=== PATIENT | female | born 2000 | race Caucasian/White ===

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

== ENCOUNTER 2018-01-26 16:03 | Outpatient (CLI) | payer OTHER ==
[2018-01-26 17:10] VITALS: BP 107/57; PULSE 98; RESP 18; TEMP 97.6
--- NOTE | 2018-02-10 06:49 | P.MSEPDOC ---
Presenting Problems - Arrival Data Date of Arrival on Unit: 01/26/18 Time of Arrival on Unit: 16:03 Mode of Transport: Ambulatory - Complaint OB-Reason for Admission/Chief Complaint: Vaginal Bleeding Comment: Bright red vaginal spotting Medical History - Information : 2 Para: 1 Term: 1 : 0 Abortions: Spontaneous or Elective: 0 Number of Living Children: 1 - Gestational Age Gestational Age by OMAR (wks/days): 31 Weeks and 3 Days - History Complications: No Care Review of Systems - Review of Systems Constitutional: No problems Breast: No problems ENT: No problems Cardiovascular: No problems Respiratory: No problems Gastrointestinal: No problems Genitourinary: No problems Musculoskeletal: No problems Neurological: No problems Skin: No problems Vital Signs - Temperature Temperature: 97.6 F Temperature Source: Axillary - Pulse Pulse Oximetery Pulse Rate: 98 Pulse Assessment Method: Pulse Oximetry - Respirations Respiratory Rate: 18 Oxygen Delivery Method: Room Air O2 Sat by Pulse Oximetry: 99 - Blood Pressure Right Arm Blood Pressure: 107/57 Blood Pressure Mean: 73 Blood Pressure Source: Automatic Cuff Medical Screen Scoring (Pre) - Cervical Exam Dilation: Exam Deferred Effacement: Exam Deferred Membranes: Intact - Uterine Contractions Frequency: N/A Duration: N/A Intensity: N/A - Maternal Vital Signs Maternal Temperature: N/A Maternal Blood Pressure: N/A Signs of Preeclampsia: N/A Maternal Respirations: N/A - Pain Assessment Pain Scale Used: Numeric (1 - 10) Pain Intensity: 0 - Maternal Trauma Maternal Trauma: N/A - Assessment Baseline FHR: 135 Heart Rate - NICHD Category: Category I (Normal) = 0 NST: Reactive Position: N/A Station: N/A - Total Score Total Score (Pre): 0 - Level of Risk Level of Risk: Low (0-5) Physician Notification (Pre) - Physician Notified Physician Notified Date: 01/26/18 Physician Notified Time: 16:03 Physician/Practitioner Notifed:: Eric Spoke With: Eric Ayala Order Received: Yes (sterile spec exam, cervical exam, discharge home) - Notification Comment Comment: If no blood noted upon spec exam, and patient is closed, may discharge home Disposition - Disposition OB Disposition: Discharge to home Discharge Date: 01/26/18 Discharge Time: 16:35 I agree with the RN Medical Screening Exam: Yes Risk & Benefit of care provided described in d/c instruction: Yes Diagnosis: SPOTTING COMPLICATING , THIRD TRIMESTER
== END 2018-01-26 16:35 | disposition home or self-care (01) ==
LOC: FBPOP 16:03
PROVIDERS: ATTEND Obstetrics & Gynecology
DX: O26.853 Spotting complicating pregnancy, third trimester (principal); Z3A.31 31 weeks gestation of pregnancy
CPT/HCPCS: 59025; G0463; 99213

== ENCOUNTER 2018-03-22 05:58 | Inpatient (IN) | payer OTHER ==
[2018-03-22] MEDS ORDERED: CARBOPROST TROMETHAMINE 250 MCG/ML 1 ML AMP IM PRN (06:06)
[2018-03-22] MEDS ORDERED: TERBUTALINE 1 MG/ML VIAL SQ PRN (06:06)
[2018-03-22] MEDS ORDERED: METHYLERGONOVINE 0.2 MG/ML 1 ML AMP IM PRN (06:06)
[2018-03-22] MEDS ORDERED: OXYTOCIN 10 UNIT/ML 1 ML VIAL IM PRN (06:06)
[2018-03-22] MEDS ORDERED: LIDOCAINE 1% (PF) 10 MG/ML (30 ML SDV) SQ PRN (06:06)
[2018-03-22] MEDS ORDERED: AMPICILLIN 2,000 MG in SODIUM CHLORIDE 0.9% 100 ML IVPB STA (06:06)
[2018-03-22] MEDS ORDERED: OXYTOCIN 20 UNITS/1000 ML NS 1,000 ML IV SCH (06:15)
[2018-03-22 06:29] VITALS: BMI 28.3
[2018-03-22] MEDS: LACTATED RINGERS 1,000 ML IV SCH ×3 (06:30→14:39)
[2018-03-22 06:47] LABS: Basophils % (A) 0 %; Eosinophils # (A) 0.1 k/uL (0-0.7); Eosinophils % (A) 1 %; HCT 35.8 % (34.0-46.0); HGB 12.1 gm/dL (11.4-16.0); Lymphocytes % (A) 18 %; MCH 28.2 pg (25.0-35.0); MCHC 33.6 g/dL (31.0-37.0); MCV 83.9 fL (80.0-100.0); Monocytes # (A) 0.5 k/uL (0-1.0); Monocytes % (A) 5 %; Neutrophils # (A) 8.4 k/uL (1.3-7.7); Neutrophils % (A) 75 %; Platelet Count 183 k/uL (150-450); RBC 4.27 m/uL (3.80-5.40); RDW 13.9 % (11.5-15.5); WBC 11.1 k/uL (4.0-11.0)
[2018-03-22] MEDS: AMPICILLIN 1,000 MG in SODIUM CHLORIDE 0.9% 50 ML IVPB SCH ×2 (10:29→14:55)
[2018-03-22] MEDS ORDERED: ROPIVACAINE 100 MG, fentaNYL (PF) 200 MCG in SODIUM CHLORIDE 0.9% 76 ML EPIDURAL ONE (11:20)
[2018-03-22] MEDS ORDERED: diphenhydrAMINE 25 MG CAP PO PRN (16:15)
[2018-03-22] MEDS ORDERED: SIMETHICONE 80 MG CHEWABLE PO PRN (16:15)
[2018-03-22] MEDS ORDERED: diphenhydrAMINE 50 MG/ML 1 ML VIAL IVP PRN ×2 (16:15)
[2018-03-22] MEDS ORDERED: BENZOCAINE/MENTHOL SPRAY 1 GM/SPRAY AEROSOL TOPICAL PRN (16:15)
[2018-03-22] MEDS ORDERED: ZOLPIDEM 5 MG TAB PO PRN (16:15)
[2018-03-22] MEDS ORDERED: HYDROCORTISONE 2.5% RECTAL CREAM 30 GM TUBE RECTAL PRN (16:15)
[2018-03-22] MEDS ORDERED: ACETAMINOPHEN TAB 325 MG TAB PO PRN (16:15)
[2018-03-22] MEDS ORDERED: WITCH HAZEL 1 EACH MED..PAD TOPICAL PRN (16:15)
[2018-03-22] MEDS ORDERED: diphenhydrAMINE 50 MG CAP PO PRN (16:15)
[2018-03-22] MEDS ORDERED: LANOLIN CREAM 5 GM TUBE TOPICAL PRN (16:15)
[2018-03-22] MEDS: IBUPROFEN 600 MG TAB PO PRN ×2 (16:26→22:01)
--- NOTE | 2018-03-22 16:57 | P.HPOB ---
History of Present Illness H&P Date: 03/22/18 Chief Complaint: Intrauterine at term: Induction of labor Patient is a 17-year-old at 39 weeks gestation who arrives for induction of labor. Her course has generally speaking been unremarkable and she is feeling well at this time. She was followed very closely throughout the gestation. She is GBS positive. Pertinent labs did include A- blood type Rh antibody was negative, rubella immune, hepatitis B surface antigen as well as RPR were both negative. She was dilated to 1-1/2 cm this morning 80% effaced. Artificial rupture membranes was performed clear fluid is noted. A category 1 tracing is noted. Past Medical History Past Medical History: No Reported History History of Any Multi-Drug Resistant Organisms: None Reported Past Surgical History: No Surgical Hx Reported Past Anesthesia/Blood Transfusion Reactions: No Reported Reaction Past Psychological History: No Psychological Hx Reported Smoking Status: Never smoker Past Alcohol Use History: None Reported Past Drug Use History: None Reported - Past Family History Father Family Medical History: Diabetes Mellitus Medications and Allergies Home Medications Medication Instructions Recorded Confirmed Type No Known Home Medications 03/22/18 03/22/18 History Allergies Allergy/AdvReac Type Severity Reaction Status Date / Time doxycycline Allergy Rash/Hives Verified 03/22/18 06:05 Exam Osteopathic Statement: *. No significant issues noted on an osteopathic structural exam other than those noted in the History and Physical/Consult. Vital Signs Temp Pulse Resp BP Pulse Ox 03/22/18 16:10 97.6 F 83 18 121/61 03/22/18 06:23 96.5 F L 87 16 118/75 98 Intake and Output 03/22/18 03/22/18 03/22/18 06:59 14:59 22:59 Intake Total 29.4 Balance 29.4 Intake: Intake, IV Titration 29.4 Amount Oxytocin 20 Units/1000 ml 29.4 Ns 1,000 ml @ 1 MILLIUNIT/MIN 3 mls/hr IV .Q24H [facility] Rx#:[id number] Other: Weight 77.111 kg - OBG Physical Exam Breast: both: normal (no masses) Abdomen: bowel sounds normal, no diffuse tenderness, no bruit present, no guarding noted, no hepatomegaly, no splenomegaly, no mass Vulva: both: normal Vagina: normal moisture, no discharge Cervix: no lesion, no discharge Uterus: normal size, normal contour Adnexa: both: normal Anus/Rectum: normal perianal skin, no rectal mass, no hemorrhoids, heme negative Results Result Diagrams: 03/22/18 06:12 Abnormal Lab Results - Last 24 Hours (Table) 03/22/18 Range/Units 06:12 WBC 11.1 H (4.0-11.0) k/uL Neutrophils # 8.4 H (1.3-7.7) k/uL
--- NOTE | 2018-03-22 16:59 | P.PROBDLV ---
Vaginal Delivery Note - . Vaginal Delivery Note: Patient progressed complete and pushed with spontaneous vaginal delivery of a viable female over an intact perineum. Falling deliver the head anterior posterior shoulders were delivered with gentle downward upper traction. Baby was delivered basically from straight OA position once baby was fully delivered mouth and nares were bulb suctioned and baby was placed on mother's abdomen where the umbilical cord was allowed to pulsate for 30 seconds prior to clamping and cutting. Spontaneous cry is noted an nursery personnel was present to assume care. Placenta was then delivered intact and Pitocin was added to the IV. Small skin avulsion was noted between the clitoris and urethra however as this was not bleeding and was concerned sutures in this area might cause more problems than benefits was left alone. scores and weight are both pending but both mother and baby are stable following delivery.
[2018-03-22] MEDS ORDERED: Rhogam IMMUNE GLOBULIN 1,500 UNIT/1 ML IM ONE (17:43)
[2018-03-22] MEDS: SENNOSIDES-DOCUSATE SODIUM 1 EACH TAB PO SCH (20:04)
[2018-03-23 00:54] VITALS: RESP 16
[2018-03-23] MEDS: SENNOSIDES-DOCUSATE SODIUM 1 EACH TAB PO SCH (08:29)
--- NOTE | 2018-03-23 08:53 | P.DS ---
Providers Date of admission: 03/22/18 05:58 Expected date of discharge: 03/23/18 Attending physician: Tone Moya Primary care physician: Stated None Hospital Course: Patient is doing very well day 1. She is requesting discharge home today. Vital signs are stable and afebrile. She is involuting, voiding, and she is tolerating her diet. She voices no complaints. Vital signs are stable and she is afebrile. Heart regular, lungs clear, extremities without pain. Abdomen is soft uterus is firm lochia is reported be light, she did note passage of approximately half dollar size clots. Otherwise she is stable for discharge this time. Prescription for Motrin was sent to the pharmacy and she' ll follow up with me in 6 weeks. Patient Condition at Discharge: Good Plan - Discharge Summary New Discharge Prescriptions: New Ibuprofen [Motrin] 600 mg PO Q6HR PRN #30 tab PRN Reason: Pain Discharge Medication List Ibuprofen [Motrin] 600 mg PO Q6HR PRN #30 tab 03/23/18 [Rx] Follow up Appointment(s)/Referral(s): Tone Moya DO [Doctor of Osteopathic Medicine] - 6 Weeks Activity/Diet/Wound Care/Special Instructions: No heavy lifting, limit stairs and driving, and pelvic rest. If any high temperatures, heavy bleeding, or severe pain call my office Discharge Disposition: HOME SELF-CARE
[2018-03-23 08:58] LABS: Basophils % (A) 0 %; Eosinophils # (A) 0.1 k/uL (0-0.7); Eosinophils % (A) 1 %; HCT 35.6 % (34.0-46.0); HGB 11.9 gm/dL (11.4-16.0); Lymphocytes # (A) 1.3 k/uL (1.0-4.8); Lymphocytes % (A) 11 %; MCH 28.5 pg (25.0-35.0); MCHC 33.4 g/dL (31.0-37.0); MCV 85.2 fL (80.0-100.0); Mean Platelet Volume 9.5; Monocytes # (A) 0.4 k/uL (0-1.0); Monocytes % (A) 4 %; Neutrophils % (A) 84 %; Platelet Count 154 k/uL (150-450); RBC 4.18 m/uL (3.80-5.40); RDW 13.9 % (11.5-15.5); WBC 11.9 k/uL (4.0-11.0)
[2018-03-23] MEDS: IBUPROFEN 600 MG TAB PO PRN (10:16)
[2018-03-23 15:44] VITALS: BP 118/70; PULSE 63; TEMP 97.8
== END 2018-03-23 17:00 | disposition home or self-care (01) | DRG 775 ==
LOC: 4FBP 05:58
PROVIDERS: ADMIT Obstetrics & Gynecology; ATTEND Obstetrics & Gynecology
PROC: 10E0XZZ Delivery of Products of Conception, External Approach (ICD-10-PCS; principal; 2018-03-22)
PROC: 3E0234Z Introduction of Serum, Toxoid and Vaccine into Muscle, Percutaneous Approach (ICD-10-PCS; 2018-03-22)
DX: O99.824 Streptococcus B carrier state complicating childbirth (principal); O26.893 Other specified pregnancy related conditions, third trimester; O70.9 Perineal laceration during delivery, unspecified; Z37.0 Single live birth; Z67.91 Unspecified blood type, Rh negative; Z3A.39 39 weeks gestation of pregnancy; Z83.3 Family history of diabetes mellitus
CPT/HCPCS: 85025; 85461

== ENCOUNTER → 2019-09-15 | Outpatient (CLI) | payer OTHER ==
--- NOTE | 2019-09-15 15:26 | US ---
EXAMINATION TYPE: Transabdominal DATE OF EXAM: 09/15/2019 2:10 PM COMPARISON: NONE CLINICAL HISTORY: Z36 Confirm dates. Positive beta hCG test. EXAM PERFORMED: Transabdominal (TA) EXAM MEASUREMENTS: GESTATIONAL AGE / DATING Physician Established: Not established Dates by LMP: (11 weeks/4 days) EDC: 04/01/2020 Dates by First Scan: No previous Dates by Current Scan for: (12 weeks/0 days) EDC: 03/29/2020 MATERNAL ANATOMY Uterus: 13.8 x 6.9 x 7.5 cm Right Ovary: 3.3 x 2.2 x 1.4 cm Left Ovary: 2.7 x 2.0 x 2.5 cm Post CDS / Adnexa: wnl Presence of free fluid: No Presence of corpus luteal cyst: No Presence of subchorionic bleed: No GESTATION / SURVEY CRL: 5.4 (12 weeks/0 days) MSD: 5.9 (12 weeks/0 days) Yolk Sac (normal less than 6mm): Not seen Heart Rate: 178 bpm Rhythm: Normal IUP: Viable IUP Nuchal Translucency 10-14wks (normal less than 3mm): not measured. Date of LMP: 06/26/2019 Beta HcG (if available): Single live intrauterine gestation is confirmed as gestational sac and pole are seen. No yolk s ac noted. No free fluid in pelvic cul-de-sac. Both ovaries are seen without concerning extraovarian mass. IMPRESSION: Single live intrauterine gestation is confirmed, mean crown-rump length is 5.4 cm corresp onding to a 12 week 0 day old fetus.
== END | disposition home or self-care (01) ==
LOC: RADUSWWP 13:34
PROVIDERS: ATTEND Obstetrics & Gynecology
DX: Z36.87 Encounter for antenatal screening for uncertain dates (principal); Z3A.12 12 weeks gestation of pregnancy; Z88.1 Allergy status to other antibiotic agents
CPT/HCPCS: 76801

== ENCOUNTER 2020-01-08 12:20 | Outpatient (CLI) | payer OTHER ==
[2020-01-08 13:29] LABS: Appearance,Urine Clear (Clear); Bilirubin,Urine Negative (Negative); Blood,Urine Negative (Negative); Color,Urine Yellow; Glucose,Urine (UA) Negative (Negative); Ketones,Urine 1+ (Negative); Leukocyte Esterase,Urine Negative (Negative); Nitrite,Urine Negative (Negative); PH, Urine 7.5 (5.0-8.0); Protein,Urine Trace (Negative); Specific Gravity,Urine 1.016 (1.001-1.035); Urobilinogen,Urine <2.0 mg/dL (<2.0)
[2020-01-08 13:38] LABS: African American GFR (CKD) >90 (>60 ml/min/1.73 sqM); Glucose 94 mg/dL (74-99); Non-African American GFR(CKD) >90 (>60 ml/min/1.73 sqM)
[2020-01-08 13:39] LABS: Basophils % (A) 0 %; Eosinophils # (A) 0.1 k/uL (0-0.7); Eosinophils % (A) 1 %; HCT 36.3 % (34.0-46.0); HGB 11.9 gm/dL (11.4-16.0); Lymphocytes # (A) 1.8 k/uL (1.0-4.8); Lymphocytes % (A) 13 %; MCH 28.7 pg (25.0-35.0); MCHC 32.9 g/dL (31.0-37.0); MCV 87.4 fL (80.0-100.0); Monocytes # (A) 0.6 k/uL (0-1.0); Monocytes % (A) 5 %; Neutrophils # (A) 10.7 k/uL (1.3-7.7); Neutrophils % (A) 80 %; Platelet Count 213 k/uL (150-450); RBC 4.15 m/uL (3.80-5.40); RDW 13.2 % (11.5-15.5); WBC 13.4 k/uL (3.8-10.6)
[2020-01-08 13:41] LABS: Amphetamine Screen,Urine Not Detected (NotDetected); Barbiturate Screen,Urine Not Detected (NotDetected); Benzodiazepines Screen,Urine Not Detected (NotDetected); Cocaine Screen,Urine Not Detected (NotDetected); Methadone Screen, Urine Not Detected (NotDetected); Opiate Screen,Urine Not Detected (NotDetected); Oxycodone Screen, Urine Not Detected (NotDetected); Phencyclidine Screen,Urine Not Detected (NotDetected); Tricyclic Antidepressant,Urine Not Detected (NotDetected); Urn Cannabinoid Scrn Detected (NotDetected)
--- NOTE | 2020-01-08 14:33 | US ---
EXAMINATION TYPE: US OB anatomy transabd DATE OF EXAM: 01/08/2020 COMPARISON: US 09/15/2019 HISTORY: 28 weeks , no scan since aug. anatomy u/s , 3rd tr TECHNIQUE: Transabdominal (TA) EXAM MEASUREMENTS: GESTATIONAL AGE / DATING Physician Established: (28 weeks/0 days) EDC: 04/01/2020 Dates by LMP: (28 weeks/0 days) EDC: 04/01/2020 Dates by First Scan: (28 weeks/3 days) EDC: 03/29/2020 Dates by Current Scan for: (27 weeks/2 days) EDC: 04/06/2020 SURVEY IUP: Single PLACENTA: Posterior PREVIA: No previa ZURDO: 14.0 cm Normal CERVICAL LENGTH (transabdominal: norm > 3.0cm): 3.8 cm performed to verify cervical length.) BIOMETRY PRESENTATION: Vertex LIE: Longitudinal BPD: 6.7 cm 26 weeks / 6 days HC: 25.5 cm 27 weeks / 5 days AC: 22.3 cm 26 weeks / 5 days FL: 5.1 cm 27 weeks / 3 days ESTIMATED WEIGHT IN GRAMS: 1018 grams ESTIMATED WEIGHT IN LBS/OZ: 2 lbs. 4 oz. WEIGHT PERCENTAGE BASED ON ESTABLISHED DATE: 11 % HC/AC: 1.1 Normal FL/AC: 23% Normal HEART RATE: 144 bpm RHYTHM: Normal ANATOMY SEEN (within normal limits): * Lateral Vent (< 1 cm) 0.5 cm * Cisterna Magna (< 1.1 cm) 0.7 cm * Nuchal Fold (< 0.6 cm) 0.6 cm * Cerebellum (varies with age) 3.3 cm Choroid Plexus (bilateral) Midline Falx Cavus Septi Pellucidi Four Chamber Heart Outflow tracts: LVOT/RVOT Stomach Situs Nose / Lips Diaphragm Kidneys (bilateral) Bladder Three Vessel Cord Longitudinal Spine Transverse Spine Arms (bilateral) Legs (bilateral) ANATOMY NOT SEEN: Cord Insert- Unable to visualize due to position Viable IUP, measurements consistent with dates IMPRESSION: Single viable intrauterine corresponding to ultrasound age 27 weeks 2 days with estimated d ate of delivery 04/06/2020 by today's exam.
[2020-01-08 19:47] LABS: Hepatitis B Surface Antigen Non-Reactive (Non-Reactive)
== END 2020-01-08 14:30 | disposition home or self-care (01) ==
LOC: FBPOP 12:20
PROVIDERS: ATTEND Obstetrics & Gynecology
DX: Z34.83 Encounter for supervision of other normal pregnancy, third trimester (principal)
CPT/HCPCS: 59025; 76811; 80306; 81003; 82565; 82947; 85025; 86762; 86780; 86850; 86900; 86901; 87340

== ENCOUNTER → 2020-01-23 | Outpatient (CLI) | payer OTHER ==
[2020-01-23 01:31] LABS: Appearance,Urine Clear (Clear); Bilirubin,Urine Negative (Negative); Blood,Urine Negative (Negative); Color,Urine Light Yellow; Glucose,Urine (UA) Negative (Negative); Ketones,Urine Negative (Negative); Leukocyte Esterase,Urine Negative (Negative); Nitrite,Urine Negative (Negative); Protein,Urine Negative (Negative); Specific Gravity,Urine 1.003 (1.001-1.035); Urobilinogen,Urine <2.0 mg/dL (<2.0)
[2020-01-23 01:34] LABS: Protein/Creatinine Ratio,Urine 0.819
[2020-01-23 01:42] LABS: Amphetamine Screen,Urine Not Detected (NotDetected); Barbiturate Screen,Urine Not Detected (NotDetected); Benzodiazepines Screen,Urine Not Detected (NotDetected); Cocaine Screen,Urine Not Detected (NotDetected); Methadone Screen, Urine Not Detected (NotDetected); Opiate Screen,Urine Not Detected (NotDetected); Oxycodone Screen, Urine Not Detected (NotDetected); Phencyclidine Screen,Urine Not Detected (NotDetected); Tricyclic Antidepressant,Urine Not Detected (NotDetected); Urn Cannabinoid Scrn Detected (NotDetected)
[2020-01-23 02:30] LABS: Basophils % (A) 0 %; Eosinophils # (A) 0.1 k/uL (0-0.7); Eosinophils % (A) 1 %; HCT 33.4 % (34.0-46.0); HGB 10.9 gm/dL (11.4-16.0); INR 0.9 (<1.2); Lymphocytes # (A) 1.5 k/uL (1.0-4.8); Lymphocytes % (A) 11 %; MCH 28.6 pg (25.0-35.0); MCHC 32.7 g/dL (31.0-37.0); MCV 87.7 fL (80.0-100.0); Mean Platelet Volume 9.1; Monocytes # (A) 0.7 k/uL (0-1.0); Monocytes % (A) 6 %; Neutrophils # (A) 10.6 k/uL (1.3-7.7); Neutrophils % (A) 81 %; Partial Thromboplastin Time 22.9 sec (22.0-30.0); Platelet Count 181 k/uL (150-450); Prothrombin Time 9.7 sec (9.0-12.0); RBC 3.81 m/uL (3.80-5.40); RDW 13.6 % (11.5-15.5); WBC 13.2 k/uL (3.8-10.6)
[2020-01-23 02:36] LABS: ALT 8 U/L (4-34); AST 15 U/L (14-36); African American GFR (CKD) >90 (>60 ml/min/1.73 sqM); Blood Urea Nitrogen 5 mg/dL (7-17); LDH 311 U/L (313-618); Magnesium 1.6 mg/dL (1.6-2.3); Non-African American GFR(CKD) >90 (>60 ml/min/1.73 sqM); Uric Acid 4.1 mg/dL (3.7-7.4)
[2020-01-23 03:59] VITALS: RESP 16; TEMP 96.9
[2020-01-23 04:06] VITALS: BP 112/56; PULSE 82
--- NOTE | 2020-01-23 06:17 | P.MSEPDOC ---
Presenting Problems - Arrival Data Date of Arrival on Unit: 01/23/20 Time of Arrival on Unit: 00:15 Mode of Transport: EMS - Complaint OB-Reason for Admission/Chief Complaint: Headache, Visual Disturbances Medical History - Information : 3 Para: 2 Term: 2 : 0 Abortions: Spontaneous or Elective: 0 Number of Living Children: 2 - Gestational Age Gestational Age by OMAR (wks/days): 30 Weeks and 4 Days Review of Systems - Review of Systems Constitutional: No problems Breast: No problems ENT: No problems Cardiovascular: No problems Respiratory: No problems Gastrointestinal: No problems Genitourinary: No problems Musculoskeletal: No problems Neurological: No problems Skin: No problems Vital Signs - Temperature Temperature: 96.9 F Temperature Source: Temporal Artery Scan - Pulse Right Pulse Rate: 82 Pulse Assessment Method: Automatic Cuff - Respirations Respiratory Rate: 16 Oxygen Delivery Method: Room Air - Blood Pressure Right Arm Blood Pressure: 112/56 Blood Pressure Mean: 74 Blood Pressure Source: Automatic Cuff Medical Screen Scoring (Pre) - Cervical Exam Dilation: Exam Deferred Effacement: Exam Deferred Membranes: Intact - Uterine Contractions Duration: N/A Intensity: N/A - Maternal Vital Signs Maternal Temperature: N/A Signs of Preeclampsia: N/A - Maternal Trauma Maternal Trauma: N/A - Assessment - Baby A Baseline FHR: 135 Heart Rate - NICHD Category: Category I (Normal) = 0 NST: Reactive Position: N/A Station: N/A - Total Score - Baby A Total Score - Baby A: 0 - Total Score - Baby B Total Score - Baby B: 0 - Total Score - Baby C Total Score - Baby C: 0 - Level of Risk - Baby A Level of Risk - Baby A: Low (0-5) - Level of Risk - Baby B Level of Risk - Baby B: Low (0-5) - Level of Risk - Baby C Level of Risk - Baby C: Low (0-5) Physician Notification (Pre) - Physician Notified Physician Notified Date: 01/23/20 Physician Notified Time: 03:25 New Order Received: Yes - Notification Comment Comment: Maternal and status reported, labs reviewed. Ok to discharge pt with emphasis on keeping follow up appt on Wednesday Disposition - Disposition OB Disposition: Discharge to home Discharge Date: 01/23/20 Discharge Time: 03:48 I agree with the RN Medical Screening Exam: Yes Risk & Benefit of care provided described in d/c instruction: Yes Diagnosis: HEADACHE (Patient presented with 2 hour history of headache and visual disterbances. Blood pressure was normal. Pre-eclampsia labs normal. FHTs cat. I. There is no evidence of maternal/ compromis. Positive THC screen. Stable to discharge home and f/u 01/23 as scheduled.)
== END | disposition home or self-care (01) ==
LOC: FBPOP 00:15
PROVIDERS: ATTEND Obstetrics & Gynecology
DX: O99.89 Other specified diseases and conditions complicating pregnancy, childbirth and the puerperium (principal); R51 Headache; Z3A.30 30 weeks gestation of pregnancy
CPT/HCPCS: 59025; 82570; 84156; 82565; 83615; 83735; 84450; 84460; 84520; 84550; 85025; 85384; 85610; 85730; 81003; 80306; G0463; 99215

== ENCOUNTER 2020-04-01 12:04 | Outpatient (CLI) | payer OTHER ==
--- NOTE | 2020-04-01 13:34 | US ---
EXAMINATION TYPE: US OB >= 14 wk fetus DATE OF EXAM: 04/01/2020 COMPARISON: None CLINICAL HISTORY: Past dates Today is patient due day. Pelvic pressure. TECHNIQUE: Transabdominal (TA) GESTATIONAL AGE / DATING Physician Established: (40 weeks/0 days) EDC: 04/01/2020 Dates by Current Scan: (36 weeks/6 days) EDC: 04/23/2020 Beta HCG (if available): Not available at this time SURVEY IUP: Single PLACENTA: Posterior PREVIA: No Previa ZURDO: 10.4 cm Normal CERVICAL LENGTH (transabdominal: norm > 3.0cm): 3.4 cm BIOMETRY PRESENTATION: Vertex BPD: 8.8 cm 35 weeks / 3 days HC: 33.3 cm 38 weeks / 1 days AC: 32.3 cm 36 weeks / 2 days FL: 7.3 cm 37 weeks / 1 days ESTIMATED WEIGHT IN GRAMS: 2965 grams ESTIMATED WEIGHT IN LBS/OZ: 6 lbs. 9 oz. WEIGHT PERCENTAGE BASED ON ESTABLISHED DATES: 8% HC/AC: 1.0 Normal FL/AC: 22% Normal HEART RATE: 123 bpm RHYTHM: Normal Single live IUP measuring 36 weeks 6 days IMPRESSION: 1 Limited assessment of the anatomy due to advanced gestational age. Findings compatible with v iable 36 week 6 day with a heart rate 123 bpm
== END 2020-04-01 13:13 | disposition home or self-care (01) ==
LOC: FBPOP 12:04
PROVIDERS: ATTEND Obstetrics & Gynecology
DX: O48.0 Post-term pregnancy (principal); Z3A.36 36 weeks gestation of pregnancy
CPT/HCPCS: 59025; 76805; G0463; 99213

== ENCOUNTER 2020-04-03 06:15 | Inpatient (IN) | payer OTHER ==
[2020-04-03] MEDS ORDERED: OXYTOCIN 10 UNIT/ML 1 ML VIAL IM PRN (06:41)
[2020-04-03] MEDS ORDERED: METHYLERGONOVINE 0.2 MG/ML 1 ML AMP IM PRN (06:41)
[2020-04-03] MEDS ORDERED: TERBUTALINE 1 MG/ML VIAL SQ PRN (06:41)
[2020-04-03] MEDS ORDERED: CARBOPROST TROMETHAMINE 250 MCG/ML 1 ML AMP IM PRN (06:41)
[2020-04-03] MEDS ORDERED: LIDOCAINE 0.5% (PF) 5 MG/ML (50 ML SDV) SQ PRN (06:41)
[2020-04-03] MEDS ORDERED: OXYTOCIN 30 UNITS/500 ML NS 30 UNIT in SALINE 1 500ML.BAG IV SCH (06:45)
[2020-04-03 06:54] LABS: Basophils % (A) 0 %; Eosinophils # (A) 0.1 k/uL (0-0.7); Eosinophils % (A) 1 %; HCT 34.6 % (34.0-46.0); HGB 11.8 gm/dL (11.4-16.0); Lymphocytes % (A) 17 %; MCH 28.3 pg (25.0-35.0); MCV 83.3 fL (80.0-100.0); Mean Platelet Volume 10.1; Monocytes # (A) 0.6 k/uL (0-1.0); Monocytes % (A) 5 %; Neutrophils # (A) 9.3 k/uL (1.3-7.7); Neutrophils % (A) 76 %; Platelet Count 204 k/uL (150-450); RBC 4.16 m/uL (3.80-5.40); RDW 14.6 % (11.5-15.5); WBC 12.2 k/uL (3.8-10.6)
[2020-04-03] MEDS: LACTATED RINGERS 1,000 ML IV SCH ×3 (06:59→17:41)
[2020-04-03] MEDS ORDERED: BUTORPHANOL 1 MG/ML 1 ML VIAL IV PRN (09:33)
[2020-04-03] MEDS ORDERED: fentaNYL (PF) 50 MCG/ML 5 ML AMP ONE (11:09)
[2020-04-03] MEDS ORDERED: ROPIVACAINE 5MG/ML 20ML VIAL ONE (11:09)
[2020-04-03] MEDS ORDERED: SODIUM CHLORIDE 0.9% 100 ML BAG ONE (11:09)
[2020-04-03] MEDS ORDERED: diphenhydrAMINE 25 MG CAP PO PRN (13:51)
[2020-04-03] MEDS ORDERED: diphenhydrAMINE 50 MG CAP PO PRN (13:51)
[2020-04-03] MEDS ORDERED: HYDROCORTISONE 2.5% RECTAL CREAM 30 GM TUBE RECTAL PRN (13:51)
[2020-04-03] MEDS ORDERED: BENZOCAINE/MENTHOL SPRAY 1 GM/SPRAY AEROSOL TOPICAL PRN (13:51)
[2020-04-03] MEDS ORDERED: SIMETHICONE 80 MG CHEWABLE PO PRN (13:51)
[2020-04-03] MEDS ORDERED: diphenhydrAMINE 50 MG/ML 1 ML VIAL IVP PRN ×2 (13:51)
[2020-04-03] MEDS ORDERED: ZOLPIDEM 5 MG TAB PO PRN (13:51)
[2020-04-03] MEDS ORDERED: ACETAMINOPHEN TAB 325 MG TAB PO PRN (13:51)
[2020-04-03] MEDS ORDERED: LANOLIN CREAM 5 GM TUBE TOPICAL PRN (13:51)
[2020-04-03] MEDS ORDERED: OXYTOCIN 20 UNITS/1000 ML NS 1,000 ML IV SCH (14:00)
[2020-04-03] MEDS: GABAPENTIN 300 MG CAP PO SCH ×2 (14:24→22:24)
[2020-04-03] MEDS: IBUPROFEN 600 MG TAB PO PRN (14:24)
--- NOTE | 2020-04-03 16:46 | P.HPOB ---
History of Present Illness H&P Date: 04/03/20 Chief Complaint: Intrauterine at term: Induction of labor Harper is a 19-year-old at 40 weeks gestation who ryes for induction of labor. Her course was generally speaking unremarkable although she did not do her 1 hour Glucola screen. Pertinent labs could A- blood type Rh and it was negative rubella was immune, hepatitis B surface antigen and RPR were negative. Currently she is dilated 1/2 cm 80% effaced -3 station. Artificial rupture membranes was performed and clear fluid is noted. All questions are answered for her and she understands risks of's induction and increased risk for section. Plan is Pitocin augmentation of labor and she plans to use epidural for analgesia. A category 1 tracing is noted on the monitor prior to initiation of induction. Past Medical History Past Medical History: No Reported History History of Any Multi-Drug Resistant Organisms: None Reported Past Surgical History: No Surgical Hx Reported Past Anesthesia/Blood Transfusion Reactions: No Reported Reaction Past Psychological History: No Psychological Hx Reported Smoking Status: Never smoker Past Alcohol Use History: None Reported Past Drug Use History: None Reported - Past Family History Father Family Medical History: Diabetes Mellitus Medications and Allergies Home Medications Medication Instructions Recorded Confirmed Type Gabapentin 600 mg PO TID 01/08/20 04/03/20 History 114/Iron A-G/Folate 1 1 each PO DAILY 01/08/20 04/03/20 History [Prenate Elite Tablet] Allergies Allergy/AdvReac Type Severity Reaction Status Date / Time doxycycline Allergy Rash/Hives Verified 04/03/20 06:39 Exam Osteopathic Statement: *. No significant issues noted on an osteopathic structural exam other than those noted in the History and Physical/Consult. Vital Signs Temp Pulse Resp BP Pulse Ox 04/03/20 15:30 97.2 F L 68 18 114/76 98 04/03/20 15:00 97.8 F 82 18 121/72 04/03/20 14:30 98.0 F 96 18 122/64 04/03/20 14:15 98.1 F 83 18 131/68 04/03/20 14:00 100 118/62 04/03/20 13:45 98.0 F 98 18 104/87 04/03/20 13:30 97.8 F 109 H 18 122/58 04/03/20 06:38 96.7 F L 109 H 16 125/88 98 Intake and Output 04/03/20 04/03/20 04/03/20 06:59 14:59 22:59 Other: # Voids 1 Weight 88.451 kg - OBG Physical Exam Breast: both: normal (no masses) Abdomen: bowel sounds normal, no diffuse tenderness, no bruit present, no guarding noted, no hepatomegaly, no splenomegaly, no mass Vulva: both: normal Vagina: normal moisture, no discharge Cervix: no lesion, no discharge Uterus: normal size, normal contour Adnexa: both: normal Anus/Rectum: normal perianal skin, no rectal mass, no hemorrhoids, heme negative Results Result Diagrams: 04/03/20 06:40 Abnormal Lab Results - Last 24 Hours (Table) 04/03/20 Range/Units 06:40 WBC 12.2 H (3.8-10.6) k/uL Neutrophils # 9.3 H (1.3-7.7) k/uL
--- NOTE | 2020-04-03 16:47 | P.PROBDLV ---
Vaginal Delivery Note - . Vaginal Delivery Note: Patient progressed complete and pushed with spontaneous vaginal delivery of a viable female over an intact perineum. Following delivery of the head anterior posterior shoulders were easily delivered with gentle downward upper traction followed by the remainder the baby. Mouth and nares were then bulb suctioned and baby was placed on mother's abdomen where the umbilical cord was allowed to pulsate for 30 seconds prior to clamping and cutting. Nursery perso dianael was present and assumed care. Placenta was then delivered intact and Pitocin was added to the IV. scores were 9 and 9 at one and 5 minutes [place] and the weight was 6 lbs. 4 oz. Both mother and baby are stable following delivery.
[2020-04-03] MEDS: SENNOSIDES-DOCUSATE SODIUM 1 EACH TAB PO SCH (22:24)
[2020-04-04] MEDS: IBUPROFEN 600 MG TAB PO PRN ×2 (02:32→11:53)
[2020-04-04 07:14] LABS: Basophils % (A) 0 %; Eosinophils # (A) 0.1 k/uL (0-0.7); Eosinophils % (A) 1 %; HCT 34.8 % (34.0-46.0); HGB 11.5 gm/dL (11.4-16.0); Lymphocytes % (A) 16 %; MCHC 33.1 g/dL (31.0-37.0); MCV 84.8 fL (80.0-100.0); Mean Platelet Volume 9.9; Monocytes # (A) 0.6 k/uL (0-1.0); Monocytes % (A) 4 %; Neutrophils # (A) 10.1 k/uL (1.3-7.7); Neutrophils % (A) 78 %; Platelet Count 165 k/uL (150-450); RBC 4.11 m/uL (3.80-5.40)
[2020-04-04 09:52] VITALS: BP 109/73; PULSE 75; RESP 18; TEMP 97.6
[2020-04-04] MEDS: GABAPENTIN 300 MG CAP PO SCH (09:53)
[2020-04-04] MEDS: SENNOSIDES-DOCUSATE SODIUM 1 EACH TAB PO SCH (09:53)
--- NOTE | 2020-04-04 13:01 | DS ---
DISCHARGE SUMMARY PRINCIPAL DIAGNOSIS: day 1. HOSPITAL COURSE: This is a very pleasant 19-year-old female, delivered a viable female yesterday and is requesting discharge home today. Her vital signs are stable and she is afebrile. Heart regular, lungs clear, extremities without pain. Abdomen is soft uterus is firm and lochia is reported to be light. All questions were answered for her and she is stable for discharge at this time. Prescription for Motrin was forwarded to her pharmacy. She will follow up with me in 6 weeks. MMODL / IJN: [id number] /
[2020-04-04] MEDS ORDERED: Rhogam IMMUNE GLOBULIN 1,500 UNIT/1 ML IM ONE (13:18)
== END 2020-04-04 14:35 | disposition home or self-care (01) | DRG 807 ==
LOC: 4FBP 06:23
PROVIDERS: ADMIT Obstetrics & Gynecology; ATTEND Obstetrics & Gynecology
PROC: 10E0XZZ Delivery of Products of Conception, External Approach (ICD-10-PCS; principal; 2020-04-03)
PROC: 10907ZC Drainage of Amniotic Fluid, Therapeutic from Products of Conception, Via Natural or Artificial Opening (ICD-10-PCS; principal; 2020-04-03)
PROC: 3E0R3BZ Introduction of Anesthetic Agent into Spinal Canal, Percutaneous Approach (ICD-10-PCS; principal; 2020-04-03)
PROC: 00HU33Z Insertion of Infusion Device into Spinal Canal, Percutaneous Approach (ICD-10-PCS; principal; 2020-04-03)
DX: O26.893 Other specified pregnancy related conditions, third trimester (principal); Z37.0 Single live birth; Z3A.40 40 weeks gestation of pregnancy; Z79.899 Other long term (current) drug therapy; Z83.3 Family history of diabetes mellitus; Z88.1 Allergy status to other antibiotic agents
CPT/HCPCS: 85025; 85461; 86850; 86870; 86880; 86900; 86901

== ENCOUNTER 2020-04-05 09:58 | Observation (INO) | payer OTHER ==
--- NOTE | 2020-04-05 10:29 | ED ---
Headache HPI - General Chief Complaint: Headache Stated Complaint: headache, has spinal patch Time Seen by Provider: 04/05/20 10:16 Mode of arrival: wheelchair Limitations: no limitations - History of Present Illness Initial Comments: Patient is a 19-year-old female presenting to the emergency department chief complain of a spinal headache. Patient reports 2 days ago she had a LP performed while giving . Patient states afterwards she developed a spinal headache that was only better when she was laying down and increased when sitting up. Patient reports the same day she also received a blood patch which improved her symptoms. Patient states yesterday she was discharged home but she ended up developing the same headache. Patient reports the headache feels like a throbbing sensation at the base of the skull. Patient denies any visual changes, nausea or vomiting. She reports sitting in a laying position since yesterday. Patient states she has no intentions of breast-feeding. - Related Data Home Medications Medication Instructions Recorded Confirmed Gabapentin 600 mg PO TID 01/08/20 04/03/20 114/Iron A-G/Folate 1 1 each PO DAILY 01/08/20 04/03/20 [Prenate Elite Tablet] Previous Rx's Medication Instructions Recorded Ibuprofen [Motrin] 600 mg PO Q6HR PRN #30 tab 04/04/20 Allergies Allergy/AdvReac Type Severity Reaction Status Date / Time doxycycline Allergy Rash/Hives Verified 04/05/20 10:07 Review of Systems ROS Statement: Those systems with pertinent positive or pertinent negative responses have been documented in the HPI. ROS Other: All systems not noted in ROS Statement are negative. Past Medical History Past Medical History: No Reported History History of Any Multi-Drug Resistant Organisms: None Reported Past Surgical History: No Surgical Hx Reported Past Anesthesia/Blood Transfusion Reactions: No Reported Reaction Past Psychological History: No Psychological Hx Reported Smoking Status: Never smoker Past Alcohol Use History: None Reported Past Drug Use History: None Reported - Past Family History Father Family Medical History: Diabetes Mellitus General Exam Limitations: no limitations General appearance: alert, in no apparent distress Head exam: Present: atraumatic, normocephalic, normal inspection Eye exam: Present: normal appearance, PERRL, EOMI. Absent: scleral icterus, conjunctival injection, nystagmus Pupils: Present: normal accommodation ENT exam: Present: normal exam, normal oropharynx, mucous membranes moist Neck exam: Present: normal inspection, full ROM. Absent: tenderness Respiratory exam: Present: normal lung sounds bilaterally. Absent: respiratory distress, wheezes, rales Cardiovascular Exam: Present: regular rate, normal rhythm, normal heart sounds Extremities exam: Present: normal inspection, full ROM. Absent: tenderness Back exam: Present: normal inspection, full ROM. Absent: tenderness Neurological exam: Present: alert, oriented X3 Psychiatric exam: Present: normal affect, normal mood Skin exam: Present: warm, dry, intact, normal color Course Vital Signs 04/05/20 04/05/20 04/05/20 10:04 12:13 13:06 Temperature 98.3 F Pulse Rate 76 89 64 Respiratory 18 18 16 Rate Blood Pressure 127/87 136/92 124/86 O2 Sat by Pulse 97 96 99 Oximetry Medical Decision Making - Medical Decision Making Patient is a 19-year-old female presenting to the emergency department with a chief complaint of spinal headache. Headache is worse when she stands up and is throbbing in nature. Headache is worsen vertical position and is throbbing nature. Patient was given caffeine, IV fluids, morphine, Dilaudid with minimal improvement in symptoms. Patient will be admitted for further medical management. Case discussed with Dr.Helmreich Dr Early is admitting physician - Lab Data Result diagrams: 04/05/20 10:33 04/05/20 10:33 Lab Results 04/05/20 04/05/20 Range/Units 10:33 10:33 WBC 15.2 H (3.8-10.6) k/uL RBC 4.52 (3.80-5.40) m/uL Hgb 12.3 (11.4-16.0) gm/dL Hct 38.0 (34.0-46.0) % MCV 84.1 (80.0-100.0) fL MCH 27.2 (25.0-35.0) pg MCHC 32.4 (31.0-37.0) g/dL RDW 14.9 (11.5-15.5) % Plt Count 198 (150-450) k/uL Neutrophils % 83 % Lymphocytes % 11 % Monocytes % 4 % Eosinophils % 1 % Basophils % 0 % Neutrophils # 12.7 H (1.3-7.7) k/uL Lymphocytes # 1.6 (1.0-4.8) k/uL Monocytes # 0.5 (0-1.0) k/uL Eosinophils # 0.2 (0-0.7) k/uL Basophils # 0.0 (0-0.2) k/uL Sodium 137 (137-145) mmol/L Potassium 3.9 (3.5-5.1) mmol/L Chloride 110 H (98-107) mmol/L Carbon Dioxide 22 (22-30) mmol/L Anion Gap 5 mmol/L BUN 5 L (7-17) mg/dL Creatinine 0.50 L (0.52-1.04) mg/dL Est GFR (CKD-EPI)AfAm >90 (>60 ml/min/1.73 sqM) Est GFR (CKD-EPI)NonAf >90 (>60 ml/min/1.73 sqM) Glucose 80 (74-99) mg/dL Calcium 9.2 (8.4-10.2) mg/dL Total Bilirubin 0.5 (0.2-1.3) mg/dL AST 26 (14-36) U/L ALT 10 (4-34) U/L Alkaline Phosphatase 129 H (38-126) U/L Total Protein 6.0 L (6.3-8.2) g/dL Albumin 3.3 L (3.5-5.0) g/dL Disposition Clinical Impression: Spinal headache Disposition: ADMITTED IP TO THIS HOSP Condition: Good Instructions (If sedation given, give patient instructions): Acute Headache (ED) Additional Instructions: She will be admitted Is patient prescribed a controlled substance at d/c from ED?: No Referrals: None,Stated [Primary Care Provider] - 1-2 days Time of Disposition: 13:42
[2020-04-05 10:45] LABS: Basophils % (A) 0 %; Eosinophils # (A) 0.2 k/uL (0-0.7); Eosinophils % (A) 1 %; HGB 12.3 gm/dL (11.4-16.0); Lymphocytes # (A) 1.6 k/uL (1.0-4.8); Lymphocytes % (A) 11 %; MCH 27.2 pg (25.0-35.0); MCHC 32.4 g/dL (31.0-37.0); MCV 84.1 fL (80.0-100.0); Mean Platelet Volume 9.6; Monocytes # (A) 0.5 k/uL (0-1.0); Monocytes % (A) 4 %; Neutrophils # (A) 12.7 k/uL (1.3-7.7); Neutrophils % (A) 83 %; Platelet Count 198 k/uL (150-450); RBC 4.52 m/uL (3.80-5.40); RDW 14.9 % (11.5-15.5); WBC 15.2 k/uL (3.8-10.6)
[2020-04-05] MEDS ORDERED: CAFFEINE-SODIUM BENZOATE 1,000 MG in SODIUM CHLORIDE 0.9% 1,000 ML IVPB ONE (10:45)
[2020-04-05 10:54] LABS: ALT 10 U/L (4-34); AST 26 U/L (14-36); African American GFR (CKD) >90 (>60 ml/min/1.73 sqM); Albumin 3.3 g/dL (3.5-5.0); Alkaline Phosphatase 129 U/L (38-126); Anion Gap 5 mmol/L; Blood Urea Nitrogen 5 mg/dL (7-17); Calcium 9.2 mg/dL (8.4-10.2); Carbon Dioxide 22 mmol/L (22-30); Chloride 110 mmol/L (98-107); Glucose 80 mg/dL (74-99); Non-African American GFR(CKD) >90 (>60 ml/min/1.73 sqM); Potassium 3.9 mmol/L (3.5-5.1); Sodium 137 mmol/L (137-145); Total Bilirubin 0.5 mg/dL (0.2-1.3)
[2020-04-05] MEDS ORDERED: MORPHINE SULFATE 4 MG/ML SYRINGE IVP STA (11:14)
[2020-04-05] MEDS ORDERED: HYDROmorphone 1 MG/ML 1 ML SYRINGE IVP STA (12:13)
[2020-04-05] MEDS ORDERED: SODIUM CHLORIDE 0.9% 1,000 ML IV STA (12:17)
[2020-04-05] MEDS ORDERED: NALOXONE 0.4 MG/ML 1 ML VIAL IV PRN (13:39)
[2020-04-05] MEDS ORDERED: LORazepam 2 MG/ML INJ IV PRN (13:39)
[2020-04-05] MEDS ORDERED: LORazepam 2 MG/ML INJ IV STA (16:19)
[2020-04-05] MEDS ORDERED: ONDANSETRON 4 MG/2 ML VIAL IVP PRN (16:19)
[2020-04-05 17:10] VITALS: BP 129/88; PULSE 72; RESP 16; TEMP 98
[2020-04-05] MEDS ORDERED: BUTALB/APAP/CAFF 50-325-40MG TAB PO PRN (17:39)
[2020-04-05] MEDS ORDERED: MORPHINE SULFATE 2 MG/ML SYRINGE IVP PRN (17:42)
[2020-04-05] MEDS ORDERED: GABAPENTIN 300 MG CAP PO PRN (17:52)
[2020-04-05] MEDS ORDERED: buPROPion XL 150 MG TAB.ER.24H PO SCH (18:00)
[2020-04-05] MEDS ORDERED: ARIPiprazole 5 MG TAB PO SCH (18:00)
--- NOTE | 2020-04-05 20:51 | P.HPIM ---
History of Present Illness H&P Date: 04/05/20 Chief Complaint: headache Patient is a 19-year-old female with recent vaginal delivery on 04/03 with epidural and subsequent spinal headache with blood patch placement, history of borderline personality disorder, and gabapentin use secondary to her personality disorder who presented to the ER with complaints of severe headache. Patient was discharged on the morning of 04/04 after receiving a blood patch for a spinal headache. In the ER she received caffeine, morphine, and Dilaudid without significant relief. She was subsequently admitted. Vital signs on arri aubrey were within normal limits. Patient was noted to have a slight leukocytosis however this was felt to be secondary to a stress reaction and recent vaginal delivery. Laboratory analysis is otherwise unremarkable. Patient seen and examined at bedside. She is upset and crying. She states that nothing has helped her headache. She does state that the Ativan she received earlier with her sleep with and when she woke up she continued to have her headache. She recounts that she had epidural and then developed a spinal headache. She received a blood patch and then felt better. She was discharged home yesterday morning and at 6 PM last evening her headache recurred. She states that it is fine when she is laying flat and not moving, however is seen and she moves and turns over in bed she again gets a severe headache. She states it is almost impossible to stand up due to the severity of her headache. She describes it as a pulling sensation with pressure behind her ear isn't on the back of her scalp. She denies any difficulty tolerating light, tolerating sound, or seeing spots. She does admit to some double vision if the pain gets severe. She denies any nausea. She states she has never had headaches like this before. She also complains of back pain that is worse with movement. She states she has been unable to care for her child secondary to the severity of her h eadache. She denies fever, chills, change in vaginal discharge, chest pain, or shortness of breath. No difficulty with urination. Review of Systems Pertinent positives and negatives as discussed in HPI, a complete review of systems was performed and all other systems are negative. Past Medical History Past Medical History: No Reported History History of Any Multi-Drug Resistant Organisms: None Reported Past Surgical History: No Surgical Hx Reported Past Anesthesia/Blood Transfusion Reactions: No Reported Reaction Past Psychological History: No Psychological Hx Reported Smoking Status: Never smoker Past Alcohol Use History: None Reported Past Drug Use History: None Reported - Past Family History Father Family Medical History: Diabetes Mellitus Medications and Allergies Home Medications Medication Instructions Recorded Confirmed Type Gabapentin 600 mg PO QID PRN 01/08/20 04/05/20 History Acetaminophen [Tylenol] 1,000 mg PO Q4H PRN 04/05/20 04/05/20 History Butalb/APAP/Caff 50-325-40Mg 1 each PO Q4HR PRN #3 tab 04/05/20 Rx [Fioricet 50-325-40] Ibuprofen [Motrin Ib] 600 mg PO Q6H PRN 04/05/20 04/05/20 History Allergies Allergy/AdvReac Type Severity Reaction Status Date / Time doxycycline Allergy Rash/Hives Verified 04/05/20 14:01 Physical Exam Osteopathic Statement: *. No significant issues noted on an osteopathic structural exam other than those noted in the History and Physical/Consult. Vitals: Vital Signs Temp Pulse Pulse Resp BP BP Pulse Ox 04/05/20 17:00 98.0 F 72 16 129/88 98 04/05/20 14:35 98.1 F 62 20 134/83 97 04/05/20 13:06 64 16 124/86 99 04/05/20 12:13 89 18 136/92 96 04/05/20 10:04 98.3 F 76 18 127/87 97 Intake and Output 04/05/20 04/05/20 04/05/20 06:59 14:59 22:59 Other: # Voids 1 Weight 72.575 kg General: non toxic, mild distress, appears at stated age Derm: warm, dry Head: atraumatic, normocephalic, symmetric Eyes: EOMI, no lid lag, anicteric sclera, pupils equal round reactive to light ENT: Nose and ears atraumatic, no thrush, no pharyngeal erythema Neck: No thyromegaly, no cervical lymphadenopathy, trachea midline, supple Mouth: no lip lesion, mucus membranes moist Cardiovascular: S1S2 reg, no murmur, positive posterior tibial pulse bilateral, no edema, capillary refill less than 2 seconds Lungs: clear to ascultation bilateral, no ronchi, no rales, no wheeze, no accessory muscle use Abdominal: soft, nontender to palpation, no guarding, no appreciable organomegaly, normal bowel sounds Ext: no gross muscle atrophy, muscle strength muscle strength 5 out of 5 in all 4 extremities, no contractures Neuro: CN II-XI grossly intact, light touch intact all 4 extremities, finger to nose within normal limits Psych: Alert, oriented, anxious upset and crying Results CBC & Chem 7: 04/05/20 10:33 04/05/20 10:33 Labs: Abnormal Lab Results - Last 24 Hours (Table) 04/05/20 04/05/20 Range/Units 10:33 10:33 WBC 15.2 H (3.8-10.6) k/uL Neutrophils # 12.7 H (1.3-7.7) k/uL Chloride 110 H (98-107) mmol/L BUN 5 L (7-17) mg/dL Creatinine 0.50 L (0.52-1.04) mg/dL Alkaline Phosphatase 129 H (38-126) U/L Total Protein 6.0 L (6.3-8.2) g/dL Albumin 3.3 L (3.5-5.0) g/dL Thrombosis Risk Factor Assmnt - DVT/VTE Prophylaxis DVT/VTE Prophylaxis: Low risk, early ambulation encouraged - Choose All That Apply Any of the Below Risk Factors Present?: Yes Each Factor Represents 1 point: Obesity (BMI >25), or Other Risk Factors: No Other congenital or acquired thrombophilia - If yes, enter type in comment: Yes Thrombosis Risk Factor Assessment Total Risk Factor Score: 2 Thrombosis Risk Factor Assessment Level: Low Risk Assessment and Plan Assessment: Intractable headache -Suspect spinal headache -Anesthesia consulted. No indication for repeat blood patch -Trial of Fioricet -Has already received caffeine IV -Resumption of her gabapentin -Supportive care -Discussed with patient that IV narcotics could make withdrawal headache worse. We also discussed that typically spinal headaches resolved with tincture of time. -Discussed with patient that if her headache does not improve with Fioricet we'll proceed with MRI of the brain to rule out more sinister causes of headaches. Recent vaginal delivery -Outpatient [facility] follow-up Leukocytosis -Suspect reactive -Repeat CBC in a.m. Borderline personality disorder -On review of outpatient pharmacy records it appears that patient is supposed to be taking Abilify and Wellbutrin. She reports that these were just prescribed in February but she never started them as she found out she was . Patient's [facility] pharmacy was contacted and verify that these medications had been filled in December, January, and February -Outpatient follow-up The patient is placed in observation with an anticipated less than 2 midnight stay for evaluation of Intractable headache. Surrogate decision-maker: mother CODE STATUS:full DVT prophylaxis: SCDs Discussed with: patient, nursing, ORGANIZATIONAL DEVELOPMENT CONSULTANT Anticipated discharge date: in AM Anticipated discharge place: home A total of 75 minutes was spent on the care of this complex patient more than 50% of the time was spent in counseling and care coordination. I received a phone call from the nurse at 8:03 PM stating that the patient's headache was better from the Fioricet given at approximately 6:15 PM. Patient was requesting to be discharged as her headache had resolved. I discussed with the nurse that I suggest that the patient stay overnight and she just had resolution of her headache, it was so severe, and came back quickly requiring readmission. I offered to discharge her first thing in the morning when I arr ived. Shortly later received communication from nursing that patient wanted to leave AMA. Patient was again encouraged to stay by nursing. However she refused. I did send over a prescription for 3 Fioricet tablets should her headache recur to her pharmacy. This dictation will serve as bowls admission and discharge summary.
== END 2020-04-05 20:35 | disposition left against medical advice (07) ==
LOC: EC 09:58 → 6PED 13:41 → 4FBP 16:26
PROVIDERS: ADMIT Family Medicine; ATTEND Family Medicine
DX: O89.4 Spinal and epidural anesthesia-induced headache during the puerperium (principal); Z53.29 Procedure and treatment not carried out because of patient's decision for other reasons; Z83.3 Family history of diabetes mellitus; F60.3 Borderline personality disorder; E66.9 Obesity, unspecified; Z68.26 Body mass index [BMI] 26.0-26.9, adult; D72.829 Elevated white blood cell count, unspecified; Z79.899 Other long term (current) drug therapy; Z88.6 Allergy status to analgesic agent
CPT/HCPCS: 96376; 96361; 96365; 96375; 99284; 36415; 80053; 85025; G0378 ×2; J2060; J2270; J1170

== ENCOUNTER 2020-09-12 23:09 | Emergency (ER) | payer OTHER ==
[2020-09-12] MEDS ORDERED: LIDOCAINE 1% INJ 10MG/ML (20 ML MDV) SQ ONE (23:27)
[2020-09-12] MEDS ORDERED: IBUPROFEN 600 MG TAB PO STA (23:27)
--- NOTE | 2020-09-12 23:34 | ED ---
Female Urogenital HPI - General Chief complaint: Vaginal Bleeding Stated complaint: Urogenital Time Seen by Provider: 09/12/20 23:19 Source: patient Mode of arrival: ambulatory Limitations: no limitations - History of Present Illness Initial comments: 20 year-old female patient presents to the emergency department for evaluation of laceration to her genitalia. She states that she was having normal intercourse when she started to have pain and bleeding. Patient's significant other looked at the area and noticed a laceration. This occurred about 35 min utes ago. She is 5 months post . Denies significant pain to the area. Denies any other injuries or concerns. Patient denies any headache, neck pain, back pain, chest pain, shortness of breath, dizziness, weakness, abdominal pain, nausea, vomiting, or difficulties with bowel movements or urination. Last Menstrual Period: 09/06/20 - Related Data Home Medications Medication Instructions Recorded Confirmed Gabapentin 600 mg PO QID PRN 01/08/20 04/05/20 Acetaminophen [Tylenol] 1,000 mg PO Q4H PRN 04/05/20 04/05/20 Ibuprofen [Motrin Ib] 600 mg PO Q6H PRN 04/05/20 04/05/20 Previous Rx's Medication Instructions Recorded Butalb/APAP/Caff 50-325-40Mg 1 each PO Q4HR PRN #3 tab 04/05/20 [Fioricet 50-325-40] Ibuprofen [Motrin] 600 mg PO Q8HR PRN #30 tab 09/13/20 Allergies Allergy/AdvReac Type Severity Reaction Status Date / Time doxycycline Allergy Rash/Hives Verified 09/12/20 23:13 Review of Systems ROS Statement: Those systems with pertinent positive or pertinent negative responses have been documented in the HPI. ROS Other: All systems not noted in ROS Statement are negative. Past Medical History Past Medical History: No Reported History History of Any Multi-Drug Resistant Organisms: None Reported Past Surgical History: No Surgical Hx Reported Past Anesthesia/Blood Transfusion Reactions: No Reported Reaction Past Psychological History: No Psychological Hx Reported Smoking Status: Never smoker Past Alcohol Use History: Occasional Past Drug Use History: None Reported - Past Family History Father Family Medical History: Diabetes Mellitus General Exam Limitations: no limitations General appearance: alert, in no apparent distress, other (Physical well- developed, well-nourished adult female patient in no acute distress. Vital signs upon presentation are temperature 98.6F, pulse 104, respirations 16, blood pressure 136/95, pulse ox 98% on room air.) Respiratory exam: Present: normal lung sounds bilaterally. Absent: respiratory distress, wheezes, rales, rhonchi, stridor Cardiovascular Exam: Present: regular rate, normal rhythm, normal heart sounds. Absent: systolic murmur, diastolic murmur, rubs, gallop, clicks External exam: Present: lacerations (Right labia minora, 2cm laceration, 3cm laceration, larger laceration does have active bleeding. ) Neurological exam: Present: alert, oriented X3, CN II-XII intact Psychiatric exam: Present: normal affect, normal mood Skin exam: Present: warm, dry, intact, normal color. Absent: rash Course Vital Signs 09/12/20 23:14 Temperature 98.6 F Pulse Rate 104 H Respiratory 16 Rate Blood Pressure 136/95 O2 Sat by Pulse 98 Oximetry Medical Decision Making - Medical Decision Making 20 -year-old female patient presented to the emergency department today for evaluation of pain and bleeding to the genitalia. Physical examination did reveal a 3 cm laceration to the right labia minora. There was active bleeding. She had a smaller 2 cm tear that was not bleeding. Laceration was repaired using a continuous suture. Patient tolerated this well. She'll be discharged to follow-up with her mortgage processor for recheck as soon as possible. She is instructed to return in 5 days have the stitches removed with her mortgage processor does not remove them. She is educated regarding wound care, sitz bath, and signs or symptoms of infection. Return parameters discussed in detail. Patient verbalizes understanding and agrees with this plan. Disposition Clinical Impression: Laceration of labia minora Disposition: HOME SELF-CARE Condition: Good Instructions (If sedation given, give patient instructions): Care For Your Stitches (ED), Laceration (ED), Sitz Bath (DC) Additional Instructions: Do warm sitz baths 2-3 times per day. This will help with hygiene as well as pain and swelling. Take pain medication as directed. Follow-up with your mortgage processor for further evaluation as soon as possible. Return here or see your mortgage processor to have stitches removed in 5 days. Monitor for signs or symptoms of infection including but not limited to swelling, increased pain, drainage of pus, fever, or chills. Return to the emergency department for any new, worsening, or concerning symptoms. Prescriptions: Ibuprofen [Motrin] 600 mg PO Q8HR PRN #30 tab PRN Reason: Pain Is patient prescribed a controlled substance at d/c from ED?: No Referrals: None,Stated [Primary Care Provider] - 1-2 days Time of Disposition: 00:05
[2020-09-13 00:31] VITALS: BP 132/61; PULSE 94; RESP 15; TEMP 98.7
--- NOTE | 2020-09-13 20:51 | ED ---
Disposition Clinical Impression: Laceration of labia minora Disposition: HOME SELF-CARE Condition: Good Instructions (If sedation given, give patient instructions): Care For Your Stitches (ED), Laceration (ED), Sitz Bath (DC) Additional Instructions: Do warm sitz baths 2-3 times per day. This will help with hygiene as well as pain and swelling. Take pain medication as directed. Follow-up with your premium auditor for further evaluation as soon as possible. Return here or see your premium auditor to have stitches removed in 5 days. Monitor for signs or symptoms of infection including but not limited to swelling, increased pain, drainage of pus, fever, or chills. Return to the emergency department for any new, worsening, or concerning symptoms. Prescriptions: Ibuprofen [Motrin] 600 mg PO Q8HR PRN #30 tab PRN Reason: Pain Is patient prescribed a controlled substance at d/c from ED?: No Referrals: None,Stated [Primary Care Provider] - 1-2 days Procedures - Laceration Laceration #1 Consent Obtained: verbal consent Site: vulva/vagina Size (cm): 3 Depth: simple, single layer Anesthetic Used: lidocaine 1% Anesthesia Technique: local infiltration Amount (mls): 5 Pre-repair: irrigated extensively Type of Sutures: nylon Size of Sutures: 5-0 Number of Sutures: 7 Technique: running Patient Tolerated Procedure: well, no complications
== END 2020-09-13 00:28 | disposition home or self-care (01) ==
LOC: EC 23:09
DX: S31.41XA Laceration without foreign body of vagina and vulva, initial encounter (principal); Z88.1 Allergy status to other antibiotic agents; X58.XXXA Exposure to other specified factors, initial encounter
CPT/HCPCS: 99282; 12002; J2001

== ENCOUNTER 2021-07-21 11:16 | Outpatient (CLI) | payer OTHER ==
--- NOTE | 2021-07-21 13:15 | P.PN ---
Progress Note - Text Progress Note Date: 07/21/21 spoke with Bre about ultrasound findings. Fetus appears to be less than 5th percentile at ultrasound today. Amniotic fluid index and nonstress tests are both normal. Likely this is small for gestational age and she is had other babies in the 6 pound range, however with her living an hour away and there being a chance this is IUGR we're planning to induce her later this afternoon. She relates that she needs to go home and take her children to her mom's then she'll come back. We'll likely start the induction around 4:00 this afternoon. With reactive nonstress test and normal amniotic fluid index correct see no reason that the 3R Macey isn't appropriate. All the questions are answered for this time.
--- NOTE | 2021-07-21 13:39 | US ---
EXAMINATION TYPE: US OB >= 14 wk fetus DATE OF EXAM: 07/21/2021 COMPARISON: None CLINICAL HISTORY: post dates TECHNIQUE: Transabdominal (TA) GESTATIONAL AGE / DATING Dates by Current Scan: (36 weeks/2 days) EDC: 08/16/2021 SURVEY IUP: Single PLACENTA: Fundal PREVIA: No Previa ZURDO: 12.39 cm Normal CERVICAL LENGTH (transabdominal: norm > 3.0cm): 3.13 cm (Supplemental transvaginal imaging performed to verify cervical length.) BIOMETRY PRESENTATION: Vertex LIE: Oblique BPD: 8.85 cm 35 weeks / 5 days HC: 32.22 cm 36 weeks / 3 days AC: 30.70 cm 34 weeks / 5 days FL: 7.39 cm 37 weeks / 6 days ESTIMATED WEIGHT IN GRAMS: 2776 grams ESTIMATED WEIGHT IN LBS/OZ: 6 lbs. 2 oz. HC/AC: 1.05 Normal FL/AC: 24.08 HEART RATE: 138 bpm RHYTHM: Normal IMPRESSION: Viable 36 week 2 day with a heart rate of 138 bpm. Estimated weight of 6 lbs. 2 oz.
[2021-07-21 13:42] VITALS: BP 131/86; PULSE 93; RESP 16; TEMP 97.5
== END 2021-07-21 13:20 | disposition home or self-care (01) ==
LOC: FBPOP 11:16
PROVIDERS: ATTEND Obstetrics & Gynecology
DX: O26.93 Pregnancy related conditions, unspecified, third trimester (principal); Z3A.40 40 weeks gestation of pregnancy; Z88.1 Allergy status to other antibiotic agents
CPT/HCPCS: 59025; 76805; G0463; 99213

== ENCOUNTER 2021-07-21 17:39 | Inpatient (IN) | payer OTHER ==
[2021-07-21] MEDS ORDERED: OXYTOCIN 10 UNIT/ML 1 ML VIAL IM PRN (17:54)
[2021-07-21] MEDS ORDERED: CARBOPROST TROMETHAMINE 250 MCG/ML 1 ML AMP IM PRN (17:54)
[2021-07-21] MEDS ORDERED: TERBUTALINE 1 MG/ML VIAL SQ PRN (17:54)
[2021-07-21] MEDS ORDERED: METHYLERGONOVINE 0.2 MG/ML 1 ML AMP IM PRN (17:54)
[2021-07-21] MEDS ORDERED: LIDOCAINE 0.5% (PF) 5 MG/ML (50 ML SDV) SQ PRN (17:54)
[2021-07-21] MEDS ORDERED: AMPICILLIN 2,000 MG in SODIUM CHLORIDE 0.9% 100 ML IVPB STA (17:57)
[2021-07-21] MEDS ORDERED: OXYTOCIN 30 UNITS/500 ML NS 30 UNIT in SALINE 1 500ML.BAG IV SCH (18:00)
[2021-07-21] MEDS: LACTATED RINGERS 1,000 ML IV SCH (18:08)
[2021-07-21 18:14] LABS: Basophils % (A) 0 %; Eosinophils # (A) 0.1 k/uL (0-0.7); Eosinophils % (A) 1 %; HCT 35.9 % (34.0-46.0); HGB 12.6 gm/dL (11.4-16.0); Lymphocytes # (A) 2.2 k/uL (1.0-4.8); Lymphocytes % (A) 15 %; MCH 29.4 pg (25.0-35.0); MCV 83.8 fL (80.0-100.0); Mean Platelet Volume 10.3; Monocytes # (A) 0.7 k/uL (0-1.0); Monocytes % (A) 4 %; Neutrophils # (A) 11.8 k/uL (1.3-7.7); Neutrophils % (A) 79 %; Platelet Count 180 k/uL (150-450); RBC 4.28 m/uL (3.80-5.40); RDW 14.4 % (11.5-15.5); WBC 14.9 k/uL (3.8-10.6)
[2021-07-21] MEDS ORDERED: AMPICILLIN 1,000 MG in SODIUM CHLORIDE 0.9% 50 ML IVPB SCH (22:00)
[2021-07-21] MEDS ORDERED: fentaNYL (PF) 50 MCG/ML 5 ML AMP ONE (22:18)
[2021-07-21] MEDS ORDERED: SODIUM CHLORIDE 0.9% 100 ML BAG ONE (22:18)
[2021-07-21] MEDS ORDERED: ROPIVACAINE 5MG/ML 20ML VIAL ONE (22:18)
[2021-07-22] MEDS ORDERED: SIMETHICONE 80 MG CHEWABLE PO PRN (01:04)
[2021-07-22] MEDS ORDERED: diphenhydrAMINE 50 MG/ML 1 ML VIAL IVP PRN ×2 (01:04)
[2021-07-22] MEDS ORDERED: diphenhydrAMINE 25 MG CAP PO PRN (01:04)
[2021-07-22] MEDS ORDERED: BENZOCAINE/MENTHOL SPRAY 1 GM/SPRAY AEROSOL TOPICAL PRN (01:04)
[2021-07-22] MEDS ORDERED: diphenhydrAMINE 50 MG CAP PO PRN (01:04)
[2021-07-22] MEDS ORDERED: ZOLPIDEM 5 MG TAB PO PRN (01:04)
[2021-07-22] MEDS ORDERED: ACETAMINOPHEN TAB 325 MG TAB PO PRN (01:04)
[2021-07-22] MEDS ORDERED: LANOLIN CREAM 5 GM TUBE TOPICAL PRN (01:04)
[2021-07-22] MEDS ORDERED: HYDROCORTISONE 2.5% RECTAL CREAM 30 GM TUBE RECTAL PRN (01:04)
--- NOTE | 2021-07-22 01:09 | P.PROBDLV ---
Vaginal Delivery Note - . Vaginal Delivery Note: A she progressed complete and pushing with spontaneous vaginal delivery of a viable male over an intact perineum. Following delivery of the head shoulders were easily delivered followed by the remainder the baby. Once baby was delivered mouth nares were bulb suctioned and baby was placed on mother's abdomen where the umbilical cord was allowed to pulsate for 45 seconds prior to clamping and cutting. Once secured nursery personnel was present and assumed c are. Placenta was then delivered intact and Pitocin was added to the IV. scores are 9 and 9 at one and 5 minutes respectively. Weight is pending but both mother and baby currently appear stable
--- NOTE | 2021-07-22 01:09 | P.HPOB ---
History of Present Illness H&P Date: 07/22/21 Chief Complaint: Urine at term: IUGR Harper is a 20-year-old at 40 weeks gestation who was seen in my office today for her normal office visit. As she was 40 weeks a ultrasound for ZURDO and EFW was ordered with a nonstress test. She was sent to labor and delivery where nonstress test was reactive ZURDO was normal at 12 but the estimate of weight was 5 pounds and 7 ounces I believe due to this we discussed options of proceeding with an induction of labor today versus potentially doing it in 2 days. She due to weather concerns with her living an hour away has opted to move forward with induction on 07/21/2021. She does have positive group B strep and group B strep prophylaxis will be provided. Pertinent labs otherwise include A- blood type, Rh antibody was negative, rubella is immune, hepatitis B surface antigen is negative her course is remarkable for late care with initiation of care at approximately 23 weeks. I did do an ultrasound approximately 1 week ago and the baby appeared to be more oblique transverse position but today baby is vertex. She was dilated to 2-3 cm and 60-70% effaced -2 station. Artificial rupture membranes has been performed following Pitocin augmentation of labor. The baby continues to have a category 1 tracing. Plans to use a an epidural for analgesia and all questions are answered for her prior to moving forward with this plan. Past Medical History Past Medical History: No Reported History History of Any Multi-Drug Resistant Organisms: None Reported Past Surgical History: No Surgical Hx Reported Past Anesthesia/Blood Transfusion Reactions: No Reported Reaction Past Psychological History: No Psychological Hx Reported Additional Psychological History / Comment(s): borderline personality disorder takes gabapentin Smoking Status: Never smoker Past Alcohol Use History: Occasional Past Drug Use History: None Reported Additional Drug Use History / Comment(s): daily use at night - Past Family History Father Family Medical History: Diabetes Mellitus Medications and Allergies Home Medications Medication Instructions Recorded Confirmed Type Pnv No.95/Ferrous Fum/Folic AC 1 tab PO ONCE 07/21/21 07/21/21 History [ Multivitamin Tablet] Allergies Allergy/AdvReac Type Severity Reaction Status Date / Time doxycycline Allergy Rash/Hives Verified 07/21/21 17:54 Exam Osteopathic Statement: *. No significant issues noted on an osteopathic structural exam other than those noted in the History and Physical/Consult. Vital Signs Temp Pulse Resp BP Pulse Ox 07/21/21 18:02 98 F 75 16 131/93 99 Intake and Output 07/21/21 07/21/21 07/22/21 14:59 22:59 06:59 Other: Weight 86.183 kg - OBG Physical Exam Breast: both: normal (no masses) Abdomen: bowel sounds normal, no diffuse tenderness, no bruit present, no guarding noted, no hepatomegaly, no splenomegaly, no mass Vulva: both: normal Vagina: normal moisture, no discharge Cervix: no lesion, no discharge Uterus: normal size, normal contour Adnexa: both: normal Anus/Rectum: normal perianal skin, no rectal mass, no hemorrhoids, heme negative Results Result Diagrams: 07/21/21 18:04 Abnormal Lab Results - Last 24 Hours (Table) 07/21/21 Range/Units 18:04 WBC 14.9 H (3.8-10.6) k/uL Neutrophils # 11.8 H (1.3-7.7) k/uL
[2021-07-22] MEDS: IBUPROFEN 600 MG TAB PO SCH ×5 (04:28→23:39)
[2021-07-22] MEDS: LACTATED RINGERS 1,000 ML IV SCH ×2 (04:29→20:30)
[2021-07-22] MEDS ORDERED: ALBUTEROL NEBULIZED 2.5 MG/3 ML INHALATION PRN (05:09)
[2021-07-22] MEDS ORDERED: Rhogam IMMUNE GLOBULIN 1,500 UNIT/1 ML IM ONE (06:06)
[2021-07-22] MEDS: SENNOSIDES-DOCUSATE SODIUM 1 EACH TAB PO SCH ×2 (08:29→19:57)
[2021-07-23 07:45] LABS: Basophils % (A) 0 %; Eosinophils # (A) 0.2 k/uL (0-0.7); Eosinophils % (A) 2 %; HCT 36.8 % (34.0-46.0); HGB 12.7 gm/dL (11.4-16.0); Lymphocytes # (A) 2.1 k/uL (1.0-4.8); Lymphocytes % (A) 18 %; MCHC 34.4 g/dL (31.0-37.0); MCV 84.3 fL (80.0-100.0); Mean Platelet Volume 9.9; Monocytes # (A) 0.6 k/uL (0-1.0); Monocytes % (A) 5 %; Neutrophils # (A) 8.6 k/uL (1.3-7.7); Neutrophils % (A) 73 %; Platelet Count 173 k/uL (150-450); RBC 4.37 m/uL (3.80-5.40); RDW 14.5 % (11.5-15.5); WBC 11.7 k/uL (3.8-10.6)
[2021-07-23] MEDS: IBUPROFEN 600 MG TAB PO SCH (07:51)
[2021-07-23] MEDS: SENNOSIDES-DOCUSATE SODIUM 1 EACH TAB PO SCH (07:51)
--- NOTE | 2021-07-23 09:24 | P.DS ---
Providers Date of admission: 07/21/21 17:39 Expected date of discharge: 07/23/21 Attending physician: Tone Moya Primary care physician: Stated None Hospital Course: Patient is doing very well post day 1. Her vital signs are stable and she is afebrile. Heart regular, lungs clear, extremities are without pain. Abdomen soft and uterus is firm. Lochia is reported be light. Assessment day 1. Plan discharged home follow up with me in 6 weeks. All questions were answered for her prior to discharge. A prescription for Motrin was 4 to the pharmacy. She is stable for discharge this time. Patient Condition at Discharge: Good Plan - Discharge Summary New Discharge Prescriptions: New Ibuprofen [Motrin] 600 mg PO Q6HR PRN #30 tab PRN Reason: Pain No Action Pnv No.95/Ferrous Fum/Folic AC [ Multivitamin Tablet] 1 tab PO ONCE Discharge Medication List Pnv No.95/Ferrous Fum/Folic AC [ Multivitamin Tablet] 1 tab PO ONCE 07/21/21 [History] Ibuprofen [Motrin] 600 mg PO Q6HR PRN #30 tab 07/23/21 [Rx] Follow up Appointment(s)/Referral(s): Tone Moya DO [Doctor of Osteopathic Medicine] - 6 Weeks Activity/Diet/Wound Care/Special Instructions: Heavy lifting, limit stairs and driving, and pelvic rest. If any high temperatures, heavy bleeding, or severe pain call my office Discharge Disposition: HOME SELF-CARE
[2021-07-23 10:02] VITALS: BP 119/76; PULSE 67; RESP 18; TEMP 97.5
== END 2021-07-23 11:22 | disposition home or self-care (01) | DRG 807 ==
LOC: 4FBP 17:39
PROVIDERS: ADMIT Obstetrics & Gynecology; ATTEND Obstetrics & Gynecology
PROC: 10E0XZZ Delivery of Products of Conception, External Approach (ICD-10-PCS; principal; 2021-07-22)
PROC: 10907ZC Drainage of Amniotic Fluid, Therapeutic from Products of Conception, Via Natural or Artificial Opening (ICD-10-PCS; 2021-07-22)
PROC: 4A0HXCZ Measurement of Products of Conception, Cardiac Rate, External Approach (ICD-10-PCS; 2021-07-22)
PROC: 3E033VJ Introduction of Other Hormone into Peripheral Vein, Percutaneous Approach (ICD-10-PCS; 2021-07-22)
DX: O36.5930 Maternal care for other known or suspected poor fetal growth, third trimester, not applicable or unspecified (principal); Z37.0 Single live birth; O99.824 Streptococcus B carrier state complicating childbirth; O99.344 Other mental disorders complicating childbirth; F60.3 Borderline personality disorder; Z3A.40 40 weeks gestation of pregnancy; Z88.1 Allergy status to other antibiotic agents
CPT/HCPCS: 85025; 85461; 86850; 86900; 86901

== ENCOUNTER 2022-06-10 17:40 | Emergency (ER) | payer OTHER ==
[2022-06-10 17:52] VITALS: RESP 16; TEMP 98.1
[2022-06-10] MEDS ORDERED: KETOROLAC 15 MG/ML 1 ML VIAL IM STA (19:40)
--- NOTE | 2022-06-10 20:30 | XR ---
EXAMINATION TYPE: XR thoracic spine 2V, XR cervical spine limited DATE OF EXAM: 06/10/2022 7:57 PM INDICATION: Patient age:Female; 21 years old; Reason for study: fracture; COMPARISON: None TECHNIQUE: 2 views of the cervical and thoracic spine in Frontal and lateral projections. FINDINGS: No evidence of acute fracture. There is no evidence of disk space narrowing or loss of vertebral bod y height. There is normal alignment of the thoracic vertebral bodies. The odontoid appears intact. Th e cervical spine is appropriate alignment with vertebral bodies maintain their height. IMPRESSION: No acute osseous pathology.
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
[2022-06-10 21:03] VITALS: BP 120/67; PULSE 78
== END 2022-06-10 20:57 | disposition home or self-care (01) ==
LOC: EC 17:40
DX: S13.4XXA Sprain of ligaments of cervical spine, initial encounter (principal); S29.012A Strain of muscle and tendon of back wall of thorax, initial encounter; V49.9XXA Car occupant (driver) (passenger) injured in unspecified traffic accident, initial encounter; Z88.1 Allergy status to other antibiotic agents
CPT/HCPCS: 72070; 72040; 99283; 96372; J1885

== ENCOUNTER 2022-12-19 04:25 | Emergency (ER) | payer OTHER ==
[2022-12-19 04:34] VITALS: RESP 18
--- NOTE | 2022-12-19 04:59 | ED ---
Female Urogenital HPI - General Chief complaint: Urogenital Stated complaint: lower back pain Time Seen by Provider: 12/19/22 04:45 Source: patient Mode of arrival: ambulatory Limitations: no limitations - History of Present Illness Initial comments: This patient is 22-year-old woman who presents evaluation of right flank pain. She states she has had some very mild symptoms going back between a week and 2. She states that over the course of last night into this morning the symptoms were more prolonged and more severe. She states that it feels like a cramping or pressure. She states it is sometimes worse with position sometimes better with position. No change in bowel movements. No vaginal discharge or bleeding. She states the only change she has noted in her urine is that it seems to be smelling strongly Complaint: other -: days(s) Location: RLQ Radiation: non-radiating Severity: moderate Quality: cramping Consistency: constant Improves with: none Worsens with: movement Last Menstrual Period: 11/21/22 Patient : No - Related Data Home Medications Medication Instructions Recorded Confirmed Pnv No.95/Ferrous Fum/Folic AC 1 tab PO ONCE 07/21/21 07/21/21 [ Multivitamin Tablet] Previous Rx's Medication Instructions Recorded Ibuprofen [Motrin] 600 mg PO Q6HR PRN #30 tab 07/23/21 Cyclobenzaprine [Flexeril] 10 mg PO TID PRN #20 tab 06/10/22 Ibuprofen [Motrin] 800 mg PO Q8H PRN #20 tab 06/10/22 Sulfamethox-Tmp 800-160Mg [Bactrim 1 tab PO Q12HR 3 Days #6 tab 12/19/22 DS 800-160 mg] Sulfamethox-Tmp 800-160Mg [Bactrim 1 each PO Q12HR #6 tab 12/19/22 Ds] Allergies Allergy/AdvReac Type Severity Reaction Status Date / Time doxycycline Allergy Rash/Hives Verified 06/10/22 17:51 Review of Systems ROS Statement: Those systems with pertinent positive or pertinent negative responses have been documented in the HPI. ROS Other: All systems not noted in ROS Statement are negative. Constitutional: Denies: fever, chills Respiratory: Denies: cough, dyspnea Cardiovascular: Denies: chest pain, palpitations Gastrointestinal: Reports: abdominal pain, nausea. Denies: vomiting, diarrhea, constipation, melena, hematochezia Genitourinary: Reports: other. Denies: dysuria, frequency, hematuria, discharge, abnormal menses Musculoskeletal: Denies: back pain Skin: Denies: rash Neurological: Denies: headache, weakness Past Medical History Past Medical History: No Reported History History of Any Multi-Drug Resistant Organisms: None Reported Past Surgical History: Orthopedic Surgery Past Anesthesia/Blood Transfusion Reactions: No Reported Reaction Past Psychological History: No Psychological Hx Reported Smoking Status: Never smoker Past Alcohol Use History: Occasional Past Drug Use History: None Reported - Past Family History Father Family Medical History: Diabetes Mellitus General Exam Limitations: no limitations General appearance: alert, in no apparent distress Head exam: Present: atraumatic, normocephalic Eye exam: Present: normal appearance. Absent: scleral icterus, conjunctival injection Neck exam: Present: normal inspection Respiratory exam: Present: normal lung sounds bilaterally. Absent: respiratory distress, wheezes, rales, rhonchi, stridor Cardiovascular Exam: Present: regular rate, normal rhythm, normal heart sounds. Absent: systolic murmur, diastolic murmur, rubs, gallop GI/Abdominal exam: Present: soft. Absent: distended, tenderness, guarding, rebound, rigid, mass, pulsatile mass, hernia Extremities exam: Present: normal inspection, normal capillary refill. Absent: pedal edema, calf tenderness Back exam: Present: normal inspection. Absent: CVA tenderness (R), CVA tenderness (L) Neurological exam: Present: alert Skin exam: Present: warm, dry, intact, normal color. Absent: rash Course Vital Signs 12/19/22 12/19/22 04:28 08:24 Temperature 97.9 F 98.0 F Pulse Rate 87 62 Respiratory 18 18 Rate Blood Pressure 139/79 115/70 O2 Sat by Pulse 100 98 Oximetry Medical Decision Making - Medical Decision Making Was pt. sent in by a medical professional or institution (, PA, ADJUNCT PHLEBOTOMY INSTRUCTOR, urgent care, hospital, or usp...) When possible be specific @ -[No] Did you speak to anyone other than the patient for history (EMS, parent, family, police, friend...)? What history was obtained from this source @ -[No] Did you review nursing and triage notes (agree or disagree)? Why? @ -[I reviewed and agree with nursing and triage notes] Were old charts reviewed (outside hosp., previous admission, EMS record, old EKG, old radiological studies, urgent care reports/EKG's, usp records)? Report findings @ -[No old charts were reviewed] Differential Diagnosis (chest pain, altered mental status, abdominal pain women, abdominal pain men, vaginal bleeding, weakness, fever, dyspnea, syncope, headache, dizziness, GI bleed, back pain, seizure, CVA, palpatations, mental health, musculoskeletal)? @ -[Differential Abdominal Pain Women: Appendicitis, Cholecystitis, diverticulosis, ischemic bowel, pancreatitis, hep atitis, UTI, gastroenteritis, AAA, incarcerated hernia, bowel obstruction, constipation, inflammatory bowel, hepatitis, peptic ulcer disease, splenic infarction, perforated viscus, vulvitis, ovarian torsion, PID, kidney stone, placenta abruption, this is not meant to be an all-inclusive list EKG interpreted by me (3pts min.). @ -[ X-rays interpreted by me (1pt min.). @ -[None done] CT interpreted by me (1pt min.). @ -[None done] U/S interpreted by me (1pt. min.). @ -[None done] What testing was considered but not performed or refused? (CT, X-rays, U/S, labs)? Why? @ -[None] What meds were considered but not given or refused? Why? @ -[None] Did you discuss the management of the patient with other professionals (professionals i.e. , PA, ADJUNCT PHLEBOTOMY INSTRUCTOR, lab, RT, psych nurse, social media designer, j2ee application developer, teacher, global chief experience officer, residential case manager)? Give summary @ -[No] Was smoking cessation discussed for >3mins.? @ -[No] Was critical care preformed (if so, how long)? @ -[No] Were there social determinants of health that impacted care today? How? (H omelessness, low income, unemployed, alcoholism, drug addiction, transportation, low edu. Level, literacy, decrease access to med. care, assisted, rehab)? @ -[No] Was there de-escalation of care discussed even if they declined (Discuss DNR or withdrawal of care, Hospice)? DNR status @ -[No] What co-morbidities impacted this encounter? (DM, HTN, Smoking, COPD, CAD, Cancer, CVA, ARF, Chemo, Hep., AIDS, mental health diagnosis, sleep apnea, morbid obesity)? @ -[None] Was patient admitted / discharged? Hospital course, mention meds given and route, prescriptions, significant lab abnormalities, going to OR and other pertinent info. @ -[Discharged Undiagnosed new problem with uncertain prognosis? @ -[No] Drug Therapy requiring intensive monitoring for toxicity (Heparin, Nitro, Insulin, Cardizem)? @ -[No] Were any procedures done? @ -[No] Diagnosis/symptom? @ -[Urinary tract infection, acute, uncomplicated Acute, or Chronic, or Acute on Chronic? @ -[default] Uncomplicated (without systemic symptoms) or Complicated (systemic symptoms)? @ -[default] Side effects of treatment? @ -[No] Exacerbation, Progression, or Severe Exacerbation? @ -[No] Poses a threat to life or bodily function? How? (Chest pain, [place], MA, pneumonia, PE, COPD, DKA, ARF, appy, cholecystitis, CVA, Diverticulitis, Homicidal, Suicidal, threat to staff... and all critical care pts) @ -[No] - Lab Data Lab Results 12/19/22 12/19/22 Range/Units 04:50 04:50 Urine Color Yellow Urine Appearance Cloudy H (Clear) Urine pH 6.0 (5.0-8.0) Ur Specific [place] 1.024 (1.001-1.035) Urine Protein Trace H (Negative) Urine Glucose (UA) Negative (Negative) Urine Ketones Negative (Negative) Urine Blood Trace H (Negative) Urine Nitrite Negative (Negative) Urine Bilirubin Negative (Negative) Urine Urobilinogen <2.0 (<2.0) mg/dL Ur Leukocyte Esterase Large H (Negative) Urine RBC 7 H (0-5) /hpf Urine WBC 9 H (0-5) /hpf Ur Squamous Epith Cells 12 H (0-4) /hpf Urine Bacteria Rare H (None) /hpf Urine Mucus Few H (None) /hpf Urine HCG, Qual Not Detected (Not Detectd) Disposition Clinical Impression: Urinary tract infection Disposition: HOME SELF-CARE Condition: Good Instructions (If sedation given, give patient instructions): Urinary Tract Infection in Women (ED) Prescriptions: Sulfamethox-Tmp 800-160Mg [Bactrim Ds] 1 each PO Q12HR #6 tab Sulfamethox-Tmp 800-160Mg [Bactrim DS 800-160 mg] 1 tab PO Q12HR 3 Days #6 tab Is patient prescribed a controlled substance at d/c from ED?: No Referrals: Sami Byrd MD [Primary Care Provider] - 1-2 days
[2022-12-19 05:00] LABS: Appearance,Urine Cloudy (Clear); Bacteria,Urine Rare /hpf; Bilirubin,Urine Negative (Negative); Blood,Urine Trace (Negative); Color,Urine Yellow; Glucose,Urine (UA) Negative (Negative); Ketones,Urine Negative (Negative); Leukocyte Esterase,Urine Large (Negative); Mucus,Urine Few /hpf; Nitrite,Urine Negative (Negative); Protein,Urine Trace (Negative); RBC,Urine 7 /hpf (0-5); Specific Gravity,Urine 1.024 (1.001-1.035); Squamous Epithelial Cell,Urine 12 /hpf (0-4); Urobilinogen,Urine <2.0 mg/dL (<2.0); WBC,Urine 9 /hpf (0-5)
--- NOTE | 2022-12-19 07:42 | CT ---
EXAM: CT Abdomen and Pelvis Without Intravenous Contrast CLINICAL HISTORY: ITS.REASON CT Reason: flank pain TECHNIQUE: Axial computed tomography images of the abdomen and pelvis without intravenous contrast. CTDI is 7.9 mGy and DLP is 474.5 mGy-cm. This CT exam was performed using one or more of the following dose reduction techniques: automated exposure control, adjustment of the mA and/or kV according to patient size, and/or use of iterative reconstruction technique. COMPARISON: No relevant prior studies available. FINDINGS: ABDOMEN: Liver: Unremarkable. Gallbladder and bile ducts: Unremarkable. Pancreas: Unremarkable. Spleen: Unremarkable. Adrenals: Unremarkable. Kidneys and ureters: Unremarkable. No obstructing stones. No hydronephrosis. Stomach and bowel: Unremarkable. PELVIS: Appendix: No findings to suggest acute appendicitis. Bladder: Unremarkable. Reproductive: Unremarkable as visualized. ABDOMEN and PELVIS: Intraperitoneal space: Unremarkable. No free air. No significant fluid collection. Bones/joints: No acute fracture. Soft tissues: Unremarkable. Vasculature: Unremarkable. Lymph nodes: Unremarkable. IMPRESSION: 1. No acute process within the abdomen or pelvis.
[2022-12-19] MEDS ORDERED: SULFAMETHOX-TMP 800-160MG 1 EACH TAB PO STA (08:07)
[2022-12-19 08:25] VITALS: BP 115/70; PULSE 62; TEMP 98
== END 2022-12-19 08:25 | disposition home or self-care (01) ==
LOC: EC 04:25
DX: N39.0 Urinary tract infection, site not specified (principal); Z88.1 Allergy status to other antibiotic agents
CPT/HCPCS: 74176; 81001; 81025; 99284

== ENCOUNTER 2023-02-20 15:35 | Emergency (ER) | payer SELFPAY ==
[2023-02-20] MEDS ORDERED: BENZOCAINE/MENTHOL LOZENG 1 EACH LOZENGE MUCOUS MEM STA (16:38)
[2023-02-20] MEDS ORDERED: IBUPROFEN 800 MG TAB PO STA (16:38)
[2023-02-20] MEDS ORDERED: IPRATROPIUM BROMIDE 0.06% NASAL SPRAY (15 ML) NASAL STA (16:47)
[2023-02-20] MEDS ORDERED: AMOXIC-POT CLAV 875-125MG 1 EACH TAB PO STA (18:10)
--- NOTE | 2023-02-20 18:17 | ED ---
ENT HPI - General Chief complaint: ENT Stated complaint: throat pain Time Seen by Provider: 02/20/23 16:25 Source: patient Mode of arrival: ambulatory Limitations: no limitations - History of Present Illness Initial comments: Patient is a 22-year-old female presents to emergency Department for sore throat. It started 3 weeks ago. States it has been worsening this week due to screaming as she has 4 toddlers at home. Patient reports hoarseness and pressure in her throat. Patient also reports nasal congestion for the past 3 weeks. She does have postnasal drip. She denies fever, chills, cough. Denies abdominal pain. nausea, vomiting. - Related Data Home Medications Medication Instructions Recorded Confirmed Pnv No.95/Ferrous Fum/Folic AC 1 tab PO ONCE 07/21/21 07/21/21 [ Multivitamin Tablet] Previous Rx's Medication Instructions Recorded Ibuprofen [Motrin] 600 mg PO Q6HR PRN #30 tab 07/23/21 Cyclobenzaprine [Flexeril] 10 mg PO TID PRN #20 tab 06/10/22 Ibuprofen [Motrin] 800 mg PO Q8H PRN #20 tab 06/10/22 Sulfamethox-Tmp 800-160Mg [Bactrim 1 tab PO Q12HR 3 Days #6 tab 12/19/22 DS 800-160 mg] Sulfamethox-Tmp 800-160Mg [Bactrim 1 each PO Q12HR #6 tab 12/19/22 Ds] Amoxic-Pot Clav 875-125Mg 1 tab PO BID 10 Days #20 tab 02/20/23 [Augmentin 875-125] Benzocaine/Menthol [Cepacol Sore 1 each MM Q4H PRN #30 lozenge 02/20/23 Throat Lozenge] Cetirizine HCl [Zyrtec] 5 mg PO DAILY #14 tab 02/20/23 Allergies Allergy/AdvReac Type Severity Reaction Status Date / Time doxycycline Allergy Rash/Hives Verified 02/20/23 15:39 Review of Systems ROS Statement: Those systems with pertinent positive or pertinent negative responses have been documented in the HPI. ROS Other: All systems not noted in ROS Statement are negative. Past Medical History Past Medical History: No Reported History History of Any Multi-Drug Resistant Organisms: None Reported Past Surgical History: Orthopedic Surgery Past Anesthesia/Blood Transfusion Reactions: No Reported Reaction Past Psychological History: No Psychological Hx Reported Smoking Status: Vaper Past Alcohol Use History: Occasional Past Drug Use History: Marijuana - Past Family History Father Family Medical History: Diabetes Mellitus General Exam Limitations: no limitations Head exam: Present: atraumatic, normocephalic, normal inspection Eye exam: Present: normal appearance, PERRL, EOMI. Absent: scleral icterus, conjunctival injection, periorbital swelling ENT exam: Present: normal oropharynx, other (nasal congestion) Neck exam: Present: normal inspection, full ROM. Absent: tenderness, meningismus, lymphadenopathy, thyromegaly Respiratory exam: Present: normal lung sounds bilaterally. Absent: respiratory distress, wheezes, rales, rhonchi, stridor Cardiovascular Exam: Present: regular rate, normal rhythm, normal heart sounds. Absent: systolic murmur, diastolic murmur, rubs, gallop, clicks Neurological exam: Present: alert, oriented X3, CN II-XII intact Psychiatric exam: Present: normal affect, normal mood Skin exam: Present: warm, dry, intact, normal color. Absent: rash Course Vital Signs 02/20/23 02/20/23 15:36 18:39 Temperature 98.8 F 98.2 F Pulse Rate 57 L 75 Respiratory 20 16 Rate Blood Pressure 127/92 124/79 O2 Sat by Pulse 99 Oximetry Medical Decision Making - Medical Decision Making Was pt. sent in by a medical professional or institution (Dr. PA, CONVERTER OPERATOR, urgent care, hospital, or custodial...) When possible be specific @ -No Did you speak to anyone other than the patient for history (EMS, parent, family, police, friend...)? What history was obtained from this source @ -No Did you review nursing and triage notes (agree or disagree)? Why? @ -I reviewed and agree with nursing and triage notes Were old charts reviewed (outside hosp., previous admission, EMS record, old EKG , old radiological studies, urgent care reports/EKG's, custodial records)? Report findings @ -No old charts were reviewed Differential Diagnosis (chest pain, altered mental status, abdominal pain women, abdominal pain men, vaginal bleeding, weakness, fever, dyspnea, syncope, headache, dizziness, GI bleed, back pain, seizure, CVA, palpatations, mental health)? @ -URI, sinusitus,strep pharyngitis, viral pharyngitis, laryngitis, pneumonia, bronchitis-this list is not meant to be all-inclusive EKG interpreted by me (3pts min.). @ -None X-rays interpreted by me (1pt min.). @ -None done CT interpreted by me (1pt min.). @ -None done U/S interpreted by me (1pt. min.). @ -None done What testing was considered but not performed or refused? (CT, X-rays, U/S, labs)? Why? @ -None What meds were considered but not given or refused? Why? @ -None Did you discuss the management of the patient with other professionals (professionals i.e. , PA, CONVERTER OPERATOR, lab, RT, psych nurse, criminal justice social worker, online project manager, teacher, chief accounting officer, rehabilitation case coordinator)? Give summary @ -No Was smoking cessation discussed for >3mins.? @ -No Was critical care preformed (if so, how long)? @ -No Were there social determinants of health that impacted care today? How? (Homelessness, low income, unemployed, alcoholism, drug addiction, transportation, low edu. Level, literacy, decrease access to med. care, shelter, rehab)? @ -No Was there de-escalation of care discussed even if they declined (Discuss DNR or withdrawal of care, Hospice)? DNR status @ -[No] What co-morbidities impacted this encounter? (DM, HTN, Smoking, COPD, CAD, Cancer, CVA, ARF, Chemo, Hep., AIDS, mental health diagnosis, sleep apnea, morbid obesity)? @ -[None] Was patient admitted / discharged? Hospital course, mention meds given and route, prescriptions, significant lab abnormalities, going to OR and other pertinent info. @ -Patient presented with nasal congestion, throat pain, hoarseness for the past 3 weeks. Viral testing and strep testing is negative. Due to extended period of nasal congestion I will treat for possible acute bacterial sinusitis. Patient given ipatropium spray and zyrtec for post nasal drop which may be contributing to symptoms. Patient to follow up with ENT for laryngitis. Undiagnosed new problem with uncertain prognosis? @ -[No] Drug Therapy requiring intensive monitoring for toxicity (Heparin, Nitro, Insulin, Cardizem)? @ -[No] Were any procedures done? @ -[No] Diagnosis/symptom? @ -acute bacterial sinusitis, laryngitis Acute, or Chronic, or Acute on Chronic? @ - acute Uncomplicated (without systemic symptoms) or Complicated (systemic symptoms)? @ -Uncomplicated Side effects of treatment? @ -[No] Exacerbation, Progression, or Severe Exacerbation? @ -[No] Poses a threat to life or bodily function? How? (Chest pain, [place], [place], pneumonia, PE, COPD, DKA, ARF, appy, cholecystitis, CVA, Diverticulitis, Homicidal, Suicidal, threat to staff... and all critical care pts) @ -[No] Dr. Jj is my attending - Lab Data Lab Results 02/20/23 02/20/23 Range/Units 16:42 16:42 Influenza Type A (PCR) Not Detected (Not Detectd) Influenza Type B (PCR) Not Detected (Not Detectd) RSV (PCR) Not Detected (Not Detectd) SARS-CoV-2 (PCR) Not Detected (Not Detectd) Group A Strep (PCR) NOT DETECTED (Not Detectd) Disposition Clinical Impression: Laryngitis, Acute bacterial sinusitis Disposition: HOME SELF-CARE Condition: Good Instructions (If sedation given, give patient instructions): Sinusitis (ED) Additional Instructions: Take medication as directed. Avoid stressing the vocal cords. Follow-up with ENT specialist in 1-2 days. Return to emergency department if you experience new, concerning, or worsening symptoms. Prescriptions: Amoxic-Pot Clav 875-125Mg [Augmentin 875-125] 1 tab PO BID 10 Days #20 tab Benzocaine/Menthol [Cepacol Sore Throat Lozenge] 1 each MM Q4H PRN #30 lozenge PRN Reason: Pain Cetirizine HCl [Zyrtec] 5 mg PO DAILY #14 tab Is patient prescribed a controlled substance at d/c from ED?: No Referrals: Sami Byrd MD [Primary Care Provider] - 1-2 days Javid Montana DO [Doctor of Osteopathic Medicine] - 1-2 days
[2023-02-20 18:40] VITALS: BP 124/79; PULSE 75; RESP 16; TEMP 98.2
== END 2023-02-20 18:40 | disposition home or self-care (01) ==
LOC: EC 15:35
DX: J01.90 Acute sinusitis, unspecified (principal); J04.0 Acute laryngitis; F17.290 Nicotine dependence, other tobacco product, uncomplicated; F12.90 Cannabis use, unspecified, uncomplicated; Z20.822 Contact with and (suspected) exposure to COVID-19; Z88.8 Allergy status to other drugs, medicaments and biological substances
CPT/HCPCS: 87636; 87651; 99283

== ENCOUNTER 2023-03-29 13:58 | Emergency (ER) | payer OTHER ==
[2023-03-29 14:06] VITALS: BP 118/81; PULSE 64; RESP 18; TEMP 98
[2023-03-29] MEDS ORDERED: FLUORESCEIN STRIPS 1 MG STRIP RIGHT EYE ONE (15:19)
[2023-03-29] MEDS ORDERED: PROPARACAINE 0.5% OPHTH DROPS 15 ML BTL RIGHT EYE STA (15:19)
--- NOTE | 2023-03-29 15:45 | ED ---
Eye Problem HPI - General Chief complaint: Eye Problems Stated complaint: Right Eye Irritation Time Seen by Provider: 03/29/23 15:11 Source: patient Mode of arrival: ambulatory Limitations: no limitations - History of Present Illness Initial comments: 22-year-old female presenting with chief complaint of right eye pain. Patient states that last night she was cooking when she suspects grease shot into the inner canthus of the right eye. She states that she washed it out with water for several minutes. She states that today she is having continued irritation on the corner of the eye. No vision changes. No discharge or watering. She does not wear contact lenses. - Related Data Home Medications Medication Instructions Recorded Confirmed Pnv No.95/Ferrous Fum/Folic AC 1 tab PO ONCE 07/21/21 07/21/21 [ Multivitamin Tablet] Previous Rx's Medication Instructions Recorded Ibuprofen [Motrin] 600 mg PO Q6HR PRN #30 tab 07/23/21 Cyclobenzaprine [Flexeril] 10 mg PO TID PRN #20 tab 06/10/22 Ibuprofen [Motrin] 800 mg PO Q8H PRN #20 tab 06/10/22 Sulfamethox-Tmp 800-160Mg [Bactrim 1 tab PO Q12HR 3 Days #6 tab 12/19/22 DS 800-160 mg] Sulfamethox-Tmp 800-160Mg [Bactrim 1 each PO Q12HR #6 tab 12/19/22 Ds] Amoxic-Pot Clav 875-125Mg 1 tab PO BID 10 Days #20 tab 02/20/23 [Augmentin 875-125] Benzocaine/Menthol [Cepacol Sore 1 each MM Q4H PRN #30 lozenge 02/20/23 Throat Lozenge] Cetirizine HCl [Zyrtec] 5 mg PO DAILY #14 tab 02/20/23 Allergies Allergy/AdvReac Type Severity Reaction Status Date / Time doxycycline Allergy Rash/Hives Verified 03/29/23 14:05 Review of Systems ROS Statement: Those systems with pertinent positive or pertinent negative responses have been documented in the HPI. ROS Other: All systems not noted in ROS Statement are negative. Past Medical History Past Medical History: No Reported History History of Any Multi-Drug Resistant Organisms: None Reported Past Surgical History: Orthopedic Surgery Past Anesthesia/Blood Transfusion Reactions: No Reported Reaction Past Psychological History: No Psychological Hx Reported Smoking Status: Vaper Past Alcohol Use History: Occasional Past Drug Use History: Marijuana - Past Family History Father Family Medical History: Diabetes Mellitus General Exam Limitations: no limitations General appearance: alert, in no apparent distress Head exam: Present: atraumatic, normocephalic, normal inspection Eye exam: Present: normal appearance, PERRL, EOMI. Absent: periorbital swelling, periorbital tenderness Expanded Eyelids: Normal Inspection: Bilateral Pupils: Regular, Round: Bilateral Visual acuity (R) = 20/: 40 Visual acuity (L) = 20/: 40 With correction: No Neck exam: Present: normal inspection, full ROM Neurological exam: Present: alert, oriented X3, CN II-XII intact Psychiatric exam: Present: normal affect, normal mood Skin exam: Present: warm, dry, intact, normal color. Absent: rash Course Vital Signs 03/29/23 14:03 Temperature 98.0 F Pulse Rate 64 Respiratory 18 Rate Blood Pressure 118/81 O2 Sat by Pulse 98 Oximetry Medical Decision Making - Medical Decision Making Was pt. sent in by a medical professional or institution (, PA, SUPERVISOR ORDER TAKERS, urgent care, hospital, or fci...) When possible be specific @ -No Did you speak to anyone other than the patient for history (EMS, parent, family, police, friend...)? What history was obtained from this source @ -No Did you review nursing and triage notes (agree or disagree)? Why? @ -I reviewed and agree with nursing and triage notes Were old charts reviewed (outside hosp., previous admission, EMS record, old EKG, old radiological studies, urgent care reports/EKG's, fci records)? Report findings @ -No old charts were reviewed Differential Diagnosis (chest pain, altered mental status, abdominal pain women, abdominal pain men, vaginal bleeding, weakness, fever, dyspnea, syncope, headache, dizziness, GI bleed, back pain, seizure, CVA, palpatations, mental health, musculoskeletal)? @ -Differential includes corneal abrasion, corneal ulcer, keratitis, conj unctivitis, this is not an all inclusive list EKG interpreted by me (3pts min.). @ -As above X-rays interpreted by me (1pt min.). @ -None done CT interpreted by me (1pt min.). @ -None done U/S interpreted by me (1pt. min.). @ -None done What testing was considered but not performed or refused? (CT, X-rays, U/S, labs)? Why? @ -None What meds were considered but not given or refused? Why? @ -None Did you discuss the management of the patient with other professionals (professionals i.e. Dr., PA, SUPERVISOR ORDER TAKERS, lab, RT, psych nurse, social and political studies professor, archivist nonprofit foundation, teacher, maritime officer, nurse case manager)? Give summary @ -No Was smoking cessation discussed for >3mins.? @ -No Was critical care preformed (if so, how long)? @ -No Were there social determinants of health that impacted care today? How? (Homelessness, low income, unemployed, alcoholism, drug addiction, transportation, low edu. Level, literacy, decrease access to med. care, [facility], rehab)? @ -No Was there de-escalation of care discussed even if they declined (Discuss DNR or withdrawal of care, Hospice)? DNR status @ -No What co-morbidities impacted this encounter? (DM, HTN, Smoking, COPD, CAD, Cancer, CVA, ARF, Chemo, Hep., AIDS, mental health diagnosis, sleep apnea, morbid obesity)? @ -None Was patient admitted / discharged? Hospital course, mention meds given and route, prescriptions, significant lab abnormalities, going to OR and other pertinent info. @ -22-year-old female presenting with chief complaint of irritation to the right eye ongoing since last night. She is concerned that she may have gotten some grease splashed in the eye while cooking last night. Visual acuity is equal bilaterally. She does not work contact lenses. There is no gross deformity on physical examination. There is questionable uptake on Wood's lamp examination with fluorescein staining. Patient will be placed on erythromycin ointment and instructed to follow-up with her PCP. Follow-up with PCP. Report back to ER with any new or worsening symptoms. Discussed return parameters and answered all questions. Patient conveyed verbal understanding and agreed to the plan. I discussed this case in detail with my attending Dr. Silva Undiagnosed new problem with uncertain prognosis? @ -No Drug Therapy requiring intensive monitoring for toxicity (Heparin, Nitro, Insulin, Cardizem)? @ -No Were any procedures done? @ -No Diagnosis/symptom? @ -corneal abrasion Acute, or Chronic, or Acute on Chronic? @ -Acute Uncomplicated (without systemic symptoms) or Complicated (systemic symptoms)? @ -Uncomplicated Side effects of treatment? @ -No Exacerbation, Progression, or Severe Exacerbation? @ -No Poses a threat to life or bodily function? How? (Chest pain, [place], [place], pneumonia, PE, COPD, DKA, ARF, appy, cholecystitis, CVA, Diverticulitis, Homicidal, Suicidal, threat to staff... and all critical care pts) @ -No Disposition Clinical Impression: Corneal abrasion Disposition: HOME SELF-CARE Condition: Good Instructions (If sedation given, give patient instructions): Corneal Abrasion (ED) Additional Instructions: Follow-up with PCP. Report back to ER with any new or worsening symptoms. Apply antibiotic ointment 4 times a day for 5 days. Is patient prescribed a controlled substance at d/c from ED?: No Referrals: Sami Byrd MD [Primary Care Provider] - 1-2 days Time of Disposition: 15:45
[2023-03-29] MEDS ORDERED: ERYTHROMYCIN 5 MG/GM OPHTH OINT 3.5 GM TUBE RIGHT EYE SCH (18:00)
== END 2023-03-29 16:00 | disposition home or self-care (01) ==
LOC: EC 13:58
DX: S05.01XA Injury of conjunctiva and corneal abrasion without foreign body, right eye, initial encounter (principal); F12.90 Cannabis use, unspecified, uncomplicated; F17.290 Nicotine dependence, other tobacco product, uncomplicated; Z88.8 Allergy status to other drugs, medicaments and biological substances; X58.XXXA Exposure to other specified factors, initial encounter
CPT/HCPCS: 99283

== ENCOUNTER → 2023-06-10 | Outpatient (CLI) | payer OTHER ==
[2023-06-10 13:20] VITALS: BP 132/73; PULSE 65; RESP 15; TEMP 98.4
--- NOTE | 2023-06-10 13:34 | P.PAINPG ---
PQRS Measure Charge Sheet Comment: HISTORY OF PRESENT ILLNESS: A 22 yr old female as a referral from Dr Courtney presents today w severe and chronic R hip pain secondary to joint effusion for evaluation. Pt states pain level is provoked at 7/10 in intensity, constant, localized in the R hip, achy in character w shooting pain towards the R knee. Pain is provoked by sitting. Pain is alleviated by PT x 3 wks in , ice, medications ([place] 10/325mg), use of a cane for ambulatory assistance, sitting, repositioning and rest . Pt stated she needs [place] more than her Cannabis use as she only uses it very infrequently, even while a patient of Dr Courtney. Stated she will stop Cannabis use and will test negative at her UDS screens. Opiate/ narcotic agreement signed and acknowledged understanding. Urged PT, to take [place] prior to sessions. PMH: GERD PSH: R Hip Tibial Fx w Reduction (2021) SH: Vape use, Occasional ETOH use, Cannabis use FH: Fa- DM All: See list Meds: See list REVIEW OF ORGAN SYSTEMS: CONSTITUTIONAL: No fevers or chills. No recent weight loss. NEUROLOGICAL: + numbness and tingling along the distal extremities. No seizure disorders or headaches. MUSCULOSKELETAL: + pain PSYCHIATRIC: Denies current depression or suicidal thoughts. Physical Examinations : Constitutional : Cooperative , not in acute distress . Neurologic : Cranial nerve II to XII intact. No focal neurological deficits. Psychiatric : alert & oriented x 3. Matching mood & appropriate affect. Judgment & insight intact. Musculoskeletal : Cervical Spine Motor strength in the deltoid and biceps: Normal right side. Normal Left side Motor strength biceps and the wrist extensors: Normal right side . Normal left side Motor strength in the triceps muscle: Normal right side. Normal left side Deep tendon reflexes: Normal at the biceps. Normal at Brachioradialis. Normal at triceps Vertebral body tenderness to deep palpation over Cervical facet loading test: positive bilaterally Spurling test: positive bilaterally Neck distraction test: positive bilaterally Leo sign: positive bilaterally Lumbar spine +RLE incisional scars, 1+ pitting edema Motor strength lower extremities ,thigh and legs 5/5 Right side , 5/5 Left side Deep tendon reflexes : Normal Knee Jerk. Normal Ankle Jerk Vertebral body tenderness over Figueroa Test positive Lumbar facet Loading Test: positive Right / positive Left Range of motion of the lumbar spine Flexion 30 degrees, extension 10 degrees Straight Leg Raise test: Left/ Right positive at degree Henry test: positive right / positive left. Severe tenderness over the Sacroiliac joint on the Right / Left sides Gaenslen test: positive bilaterally Seated flexion test: positive bilaterally. Sacral spine : Severe tenderness over the Sacroiliac joint: right side / left side Range of motion: Flexion of the lumbar spine <60 degrees Range of motion: Extension of the lumbar spine <20 degrees Gaenslen's Test positive Monico's Test positive Henry test: positive right side / left side Thigh Thrust Test Sacral Thrust Test Imaging: CT noncontrast of the right pelvis from 12/06/21 reviewed Assessment/ Plan : R hip joint effusion Recommendation of medication management. [place] 10/325mg 10/325mg #60 w 1 RF. Use, side effects, adverse reactions and safe storage discussed. Opiate/ narcotic agreement signed 06/10/23. Risks, benefits of procedure discussed and patient verbalized understanding. Admits to anti- coagulant use or medical history of diabetes. Protocol for discontinuation/ continuation of medications procedure discussed. Minimal anesthesia provided, if clinically indicated, consisting of Versed and Fentanyl. All questions answered. I have spent greater than 30 minutes on patient care today. Dr Robbins was available by phone for the evaluation of this patient. The time was used to review the medical records including relevant urine studies and Prescription history (MAPs), review of the available imaging, evaluation and examination of the patient, coordination of care with the medical staff and if applicable referring physicians, as well as creation of the medical record PQRS Narrative: Smoking Status Never smoker Home Medications: Ambulatory Orders Pnv No.95/Ferrous Fum/Folic AC [ Multivitamin Tablet] 1 tab PO ONCE 07/21/21 Ibuprofen [Motrin] 600 mg PO Q6HR PRN #30 tab 07/23/21 Cyclobenzaprine [Flexeril] 10 mg PO TID PRN #20 tab 06/10/22 Ibuprofen [Motrin] 800 mg PO Q8H PRN #20 tab 06/10/22 Sulfamethox-Tmp 800-160Mg [Bactrim DS 800-160 mg] 1 tab PO Q12HR 3 Days #6 tab 12/19/22 Sulfamethox-Tmp 800-160Mg [Bactrim Ds] 1 each PO Q12HR #6 tab 12/19/22 Amoxic-Pot Clav 875-125Mg [Augmentin 875-125] 1 tab PO BID 10 Days #20 tab 02/20/23 Benzocaine/Menthol [Cepacol Sore Throat Lozenge] 1 each MM Q4H PRN #30 lozenge 02/20/23 Cetirizine HCl [Zyrtec] 5 mg PO DAILY #14 tab 02/20/23 HYDROcodone/APAP 10-325MG [[place] 10-325] 1 tab PO BID PRN 30 Days #60 tab 06/10/23 HYDROcodone/APAP 10-325MG [[place] 10-325] 1 tab PO BID PRN 30 Days #60 tab 06/10 Controlled Substance Measures - Controlled Substance Measures Is patient prescribed a controlled substance at discharge?: Yes When asked, does pt state using other controlled substances?: No If prescribed controlled substance>3 days was MAPS reviewed?: Yes If Rx opioid, was Start Talking consent form obtained?: Yes Was information provided regarding opioid addiction?: Yes
== END ==
LOC: PNWHC3 12:31
PROVIDERS: ATTEND Specialist
DX: M16.9 Osteoarthritis of hip, unspecified (principal); G89.4 Chronic pain syndrome; M25.451 Effusion, right hip; K21.9 Gastro-esophageal reflux disease without esophagitis; F17.290 Nicotine dependence, other tobacco product, uncomplicated; Z88.1 Allergy status to other antibiotic agents
CPT/HCPCS: 99211

== ENCOUNTER → 2023-08-05 | Outpatient (CLI) | payer OTHER ==
[2023-08-05 11:19] VITALS: BP 140/81; PULSE 72; RESP 15; TEMP 98.2
--- NOTE | 2023-08-05 15:07 | P.PAINPG ---
PQRS Measure Charge Sheet Comment: HISTORY OF PRESENT ILLNESS: A 22 yr old female as a referral from Dr Courtney presents today w severe and chronic R hip pain secondary to joint effusion for evaluation. Pt states pain level is provoked at 7/10 in intensity, constant, localized in the R hip, achy in character w shooting pain towards the R knee. Pain is provoked by sitting. Pain is alleviated by PT x 3 wks in 2020, ice, medications, use of a cane for ambulatory assistance, sitting, repositioning and rest . Pt stated she needs [place] more than her Cannabis use as she only uses it very infrequently, even while a patient of Dr Courtney. Stated she will stop Cannabis use and will test negative at her UDS screens. UDS collected 08/05/23. Pt reminded that using cannabis is dangerous and illegal, despite that she practiced this while receiving narcotics from other providers. Interventional procedures include DENIES Medications include [place] 10/325mg #60 REVIEW OF ORGAN SYSTEMS: CONSTITUTIONAL: No fevers or chills. No recent weight loss. NEUROLOGICAL: + numbness and tingling along the distal ex tremities. No seizure disorders or headaches. MUSCULOSKELETAL: + pain PSYCHIATRIC: Denies current depression or suicidal thoughts. Physical Examinations : Constitutional : Cooperative , not in acute distress . Neurologic : Cranial nerve II to XII intact. No focal neurological deficits. Psychiatric : alert & oriented x 3. Matching mood & appropriate affect. Judgment & insight intact. Musculoskeletal : Cervical Spine Motor strength in the deltoid and biceps: Normal right side. Normal Left side Motor strength biceps and the wrist extensors: Normal right side . Normal left side Motor strength in the triceps muscle: Normal right side. Normal left side Deep tendon reflexes: Normal at the biceps. Normal at Brachioradialis. Normal at triceps Vertebral body tenderness to deep palpation over Cervical facet loading test: positive bilaterally Spurling test: positive bilaterally Neck distraction test: positive bilaterally Leo sign: positive bilaterally Lumbar spine +RLE incisional scars, 1+ pitting edema Motor strength lower extremities ,thigh and legs 5/5 Right side , 5/5 Left side Deep tendon reflexes : Normal Knee Jerk. Normal Ankle Jerk Vertebral body tenderness over Figueroa Test positive Lumbar facet Loading Test: positive Right / positive Left Range of motion of the lumbar spine Flexion 30 degrees, extension 10 degrees Straight Leg Raise test: Left/ Right positive at degree Henry test: positive right / positive left. Severe tenderness over the Sacroiliac joint on the Right / Left sides Gaenslen test: positive bilaterally Seated flexion test: positive bilat erally. Sacral spine : Severe tenderness over the Sacroiliac joint: right side / left side Range of motion: Flexion of the lumbar spine <60 degrees Range of motion: Extension of the lumbar spine <20 degrees Gaenslen's Test positive Monico's Test positive Henry test: positive right side / left side Thigh Thrust Test Sacral Thrust Test Imaging: CT noncontrast of the right pelvis from 12/06/21 reviewed Assessment/ Plan : R hip joint effusion Recommendation of medication management. [place] 10/325mg #60 Will check UDS 08/05/23 and determine if refill needed. Use, side effects, adverse reactions and safe storage discussed. Opiate/ narcotic agreement signed 06/10/23. Risks, benefits of procedure discussed and patient verbalized understanding. Admits to anti- coagulant use or medical history of diabetes. Protocol for discontinu ation/ continuation of medications procedure discussed. All questions answered. I have spent greater than 30 minutes on patient care today. Dr Robbins was available by phone for the evaluation of this patient. The time was used to review the medical records including relevant urine studies and Prescription history (MAPs), review of the available imaging, evaluation and examination of the patient, coordination of care with the medical staff and if applicable referring physicians, as well as creation of the medical record PQRS Narrative: Smoking Status Never smoker Home Medications: Ambulatory Orders Pnv No.95/Ferrous Fum/Folic AC [ Multivitamin Tablet] 1 tab PO ONCE Ibuprofen [Motrin] 600 mg PO Q6HR PRN #30 tab 07/23/21 Cyclobenzaprine [Flexeril] 10 mg PO TID PRN #20 tab 06/10/22 Ibuprofen [Motrin] 800 mg PO Q8H PRN #20 tab 06/10/22 Sulfamethox-Tmp 800-160Mg [Bactrim DS 800-160 mg] 1 tab PO Q12HR 3 Days #6 tab 12/19/22 Sulfamethox-Tmp 800-160Mg [Bactrim Ds] 1 each PO Q12HR #6 tab 12/19/22 Amoxic-Pot Clav 875-125Mg [Augmentin 875-125] 1 tab PO BID 10 Days #20 tab 02/20/23 Benzocaine/Menthol [Cepacol Sore Throat Lozenge] 1 each MM Q4H PRN #30 lozenge 02/20/23 Cetirizine HCl [Zyrtec] 5 mg PO DAILY #14 tab 02/20/23 HYDROcodone/APAP 10-325MG [[place] 10-325] 1 tab PO BID PRN 30 Days #60 tab 06/10/23 HYDROcodone/APAP 10-325MG [[place] 10-325] 1 tab PO BID PRN 30 Days #60 tab 08/05/23 Controlled Substance Measures - Controlled Substance Measures Is patient prescribed a controlled substance at discharge?: Yes When asked, does pt state using other controlled substances?: No If prescribed controlled substance>3 days was MAPS reviewed?: Yes
== END ==
LOC: PNWHC3 10:27
PROVIDERS: ATTEND Specialist
DX: M25.451 Effusion, right hip (principal); Z88.1 Allergy status to other antibiotic agents
CPT/HCPCS: 80307; G0463; 99211

== ENCOUNTER → 2023-09-09 | Outpatient (CLI) | payer OTHER ==
[2023-09-09 11:25] VITALS: BP 138/76; PULSE 75; RESP 15; TEMP 98.6
--- NOTE | 2023-09-09 14:19 | P.PAINPG ---
Objective - Vital Signs Vital signs: Intake & Output 09/08/23 09/09/23 09/09/23 18:59 06:59 18:59 Weight 68.039 kg PQRS Measure Charge Sheet Comment: HISTORY OF PRESENT ILLNESS: A 22 yr old female, previously from Dr Courtney presents today w severe and chronic R hip pain secondary to joint effusion for medication refills. Pt states pain level is provoked at 5/10 in intensity, constant, localized in the R hip, sharp in character w shooting pain towards the R knee. Pain is provoked by standing / walking for periods >30 min. Pain is alleviated by PT x 3 wks in 2020, ice, medications, use of a cane for ambulatory assistance, sitting, repositioning and rest . Pt stated she needs [place] more than her Cannabis use as she only uses it very infrequently, even while a patient of Dr Courtney. Interventional procedures include DENIES Medications include [place] 10/325mg #60, Cannabis which pt states she stopped REVIEW OF ORGAN SYSTEMS: CONSTITUTIONAL: No fevers or chills. No recent weight loss. NEUROLOGICAL: + numbness and tingling along the distal extremities. No seizure disorders or headaches. MUSCULOSKELETAL: + pain PSYCHIATRIC: Denies current depression or suicidal th oughts. Physical Examinations : Constitutional : Cooperative , not in acute distress . Neurologic : Cranial nerve II to XII intact. No focal neurological deficits. Psychiatric : alert & oriented x 3. Matching mood & appropriate affect. Judgment & insight intact. Musculoskeletal : Cervical Spine Motor strength in the deltoid and biceps: Normal right side. Normal Left side Motor strength biceps and the wrist extensors: Normal right side . Normal left side Motor strength in the triceps muscle: Normal right side. Normal left side Deep tendon reflexes: Normal at the biceps. Normal at Brachioradialis. Normal at triceps Vertebral body tenderness to deep palpation over Cervical facet loading test: positive bilaterally Spurling test: positive bilaterally Neck distraction test: positive bilaterally Leo sign: positive bilaterally Lumbar spine +RLE incisional scars, 1+ pitting edema Motor strength lower extremities ,thigh and legs 5/5 Right side , 5/5 Left side Deep tendon reflexes : Normal Knee Jerk. Normal Ankle Jerk Vertebral body tenderness over Figueroa Test positive Lumbar facet Loading Test: positive Right / positive Left Range of motion of the lumbar spine Flexion 30 degrees, extension 10 degrees Straight Leg Raise test: Left/ Right positive at degree Henry test: positive right / positive left. Severe tenderness over the Sacroiliac joint on the Right / Left sides Gaenslen test: positive bilaterally Seated flexion test: positive bilaterally. Sacral spine : Severe tenderness over the Sacroiliac joint: right side / left side Range of motion: Flexion of the lumbar spine <60 degrees Range of motion: Extension of the lumbar spine <20 degrees Gaenslen's Test positive Monico's Test positive Henry test: positive right side / left side Thigh Thrust Test Sacral Thrust Test Imaging: CT noncontrast of the right pelvis from 12/06/21 reviewed Assessment/ Plan : R hip joint effusion Recommendation of medication management. [place] 10/325mg #60 UDS from 08/05/23 reviewed and consistent. Use, side effects, adverse reactions and safe storage discussed. Opiate/ narcotic agreement signed 06/10/23. Risks, benefits of procedure discussed and patient verbalized understanding. Admits to anti- coagulant use or medical history of diabetes. Protocol for discontinuation/ continuation of medications procedure discussed. All questions answered. I have spent greater than 30 minutes on patient care today. Dr Robbins was available by phone for the evaluation of this patient. The time was used to review the medical records including relevant urine studies and Prescription history (MAPs), review of the available imaging, evaluation and examination of the patient, coordination of care with the medical staff and if applicable referring physicians, as well as creation of the medical record PQRS Narrative: Smoking Status Never smoker Hx Alcohol Use (MH) No Home Medications: Ambulatory Orders Pnv No.95/Ferrous Fum/Folic AC [ Multivitamin Tablet] 1 tab PO ONCE 07/21/21 Ibuprofen [Motrin] 600 mg PO Q6HR PRN #30 tab 07/23/21 Cyclobenzaprine [Flexeril] 10 mg PO TID PRN #20 tab 06/10/22 Ibuprofen [Motrin] 800 mg PO Q8H PRN #20 tab 06/10/22 Sulfamethox-Tmp 800-160Mg [Bactrim DS 800-160 mg] 1 tab PO Q12HR 3 Days #6 tab 12/19/22 Sulfamethox-Tmp 800-160Mg [Bactrim Ds] 1 each PO Q12HR #6 tab 12/19/22 Amoxic-Pot Clav 875-125Mg [Augmentin 875-125] 1 tab PO BID 10 Days #20 tab 02/20/23 Benzocaine/Menthol [Cepacol Sore Throat Lozenge] 1 each MM Q4H PRN #30 lozenge 02/20/23 Cetirizine HCl [Zyrtec] 5 mg PO DAILY #14 tab 02/20/23 HYDROcodone/APAP 10-325MG [[place] 10-325] 1 tab PO BID PRN 30 Days #60 tab 09/09/23 HYDROcodone/APAP 10-325MG [[place] 10-325] 1 tab PO BID PRN 30 Days #60 tab 09/09/23 Controlled Substance Measures - Controlled Substance Measures Is patient prescribed a controlled substance at discharge?: Yes When asked, does pt state using other controlled substances?: No If prescribed controlled substance>3 days was MAPS reviewed?: Yes
== END ==
LOC: PNWHC3 10:55
PROVIDERS: ATTEND Specialist
DX: M25.451 Effusion, right hip (principal); F12.90 Cannabis use, unspecified, uncomplicated; Z88.1 Allergy status to other antibiotic agents
CPT/HCPCS: 99211

== ENCOUNTER 2023-10-13 19:50 | Emergency (ER) | payer OTHER ==
[2023-10-13 20:22] VITALS: RESP 16
--- NOTE | 2023-10-13 22:11 | ED ---
Eye Problem HPI - General Chief complaint: Eye Problems Stated complaint: Foreigh Object Left Eye Time Seen by Provider: 10/13/23 21:22 Source: patient Mode of arrival: ambulatory Limitations: no limitations - History of Present Illness Initial comments: 23-year-old female presenting with chief complaint of left eye pain. Patient states that she was removing a metal sliver from another person with nail clippers when a piece of metal went into her left eye. She is having continued irritation and foreign body sensation. She states that she feels it is behind her eyelid but is unable to remove it despite flushing several times. Her last tetanus was about 2 years ago. She does not wear contact lenses - Related Data Home Medications Medication Instructions Recorded Confirmed Pnv No.95/Ferrous Fum/Folic AC 1 tab PO ONCE 07/21/21 07/21/21 [ Multivitamin Tablet] Previous Rx's Medication Instructions Recorded Ibuprofen [Motrin] 600 mg PO Q6HR PRN #30 tab 07/23/21 Cyclobenzaprine [Flexeril] 10 mg PO TID PRN #20 tab 06/10/22 Ibuprofen [Motrin] 800 mg PO Q8H PRN #20 tab 06/10/22 Sulfamethox-Tmp 800-160Mg [Bactrim 1 tab PO Q12HR 3 Days #6 tab 12/19/22 DS 800-160 mg] Sulfamethox-Tmp 800-160Mg [Bactrim 1 each PO Q12HR #6 tab 12/19/22 Ds] Amoxic-Pot Clav 875-125Mg 1 tab PO BID 10 Days #20 tab 02/20/23 [Augmentin 875-125] Benzocaine/Menthol [Cepacol Sore 1 each MM Q4H PRN #30 lozenge 02/20/23 Throat Lozenge] Cetirizine HCl [Zyrtec] 5 mg PO DAILY #14 tab 02/20/23 HYDROcodone/APAP 10-325MG [[place] 1 tab PO BID PRN 30 Days #60 tab 09/09/23 10-325] HYDROcodone/APAP 10-325MG [[place] 1 tab PO BID PRN 30 Days #60 tab 09/09/23 10-325] Allergies Allergy/AdvReac Type Severity Reaction Status Date / Time doxycycline Allergy Rash/Hives Verified 10/13/23 20:00 Review of Systems ROS Statement: Those systems with pertinent positive or pertinent negative responses have been documented in the HPI. ROS Other: All systems not noted in ROS Statement are negative. Past Medical History Past Medical History: No Reported History History of Any Multi-Drug Resistant Organisms: None Reported Past Surgical History: Orthopedic Surgery Past Anesthesia/Blood Transfusion Reactions: No Reported Reaction Past Psychological History: No Psychological Hx Reported Smoking Status: Vaper Past Alcohol Use History: None Reported Past Drug Use History: None Reported - Past Family History Father Family Medical History: Diabetes Mellitus General Exam Limitations: no limitations General appearance: alert, in no apparent distress Head exam: Present: atraumatic, normocephalic Eye exam: Present: PERRL, EOMI Expanded Sclera/Conjunctival: Injection: Left Neck exam: Present: normal inspection Respiratory exam: Absent: respiratory distress Cardiovascular Exam: Present: regular rate Neurological exam: Present: alert, oriented X3 Psychiatric exam: Present: normal affect, normal mood Skin exam: Present: warm, dry Course Vital Signs 10/13/23 20:00 Temperature 98.8 F Pulse Rate 69 Respiratory 16 Rate Blood Pressure 129/80 O2 Sat by Pulse 98 Oximetry Medical Decision Making - Medical Decision Making Was pt. sent in by a medical professional or institution (, PA, COUNTRY PRINTER, urgent care, hospital, or long term...) When possible be specific @ -No Did you speak to anyone other than the patient for history (EMS, parent, family, police, friend...)? What history was obtained from this source @ -No Did you review nursing and triage notes (agree or disagree)? Why? @ -I reviewed and agree with nursing and triage notes Were old charts reviewed (outside hosp., previous admission, EMS record, old EKG, old radiological studies, urgent care reports/EKG's, long term records)? Report findings @ -No old charts were reviewed Differential Diagnosis (chest pain, altered mental status, abdominal pain women, abdominal pain men, vaginal bleeding, weakness, fever, dyspnea, syncope, headache, dizziness, GI bleed, back pain, seizure, CVA, palpatations, mental health, musculoskeletal)? @ -Differential includes foreign body, corneal abrasion, conjunctivitis, this is not an all-inclusive list EKG interpreted by me (3pts min.). @ -As above X-rays interpreted by me (1pt min.). @ -None done CT interpreted by me (1pt min.). @ -None done U/S interpreted by me (1pt. min.). @ -None done What testing was considered but not performed or refused? (CT, X-rays, U/S, labs)? Why? @ -None What meds were considered but not given or refused? Why? @ -None Did you discuss the management of the patient with other professionals (professionals i.e. , PA, COUNTRY PRINTER, lab, RT, psych nurse, child protective services social worker, drop forge hand, teacher, ambulance officer, bilingual case manager)? Give summary @ -No Was smoking cessation discussed for >3mins.? @ -No Was critical care preformed (if so, how long)? @ -No Were there social determinants of health that impacted care today? How? (Homelessness, low income, unemployed, alcoholism, drug addiction, transportation, low edu. Level, literacy, decrease access to med. care, fdc, rehab)? @ -No Was there de-escalation of care discussed even if they declined (Discuss DNR or withdrawal of care, Hospice)? DNR status @ -No What co-morbidities impacted this encounter? (DM, HTN, Smoking, COPD, CAD, Cancer, CVA, ARF, Chemo, Hep., AIDS, mental health diagnosis, sleep apnea, morbid obesity)? @ -None Was patient admitted / discharged? Hospital course, mention meds given and route, prescriptions, significant lab abnormalities, going to OR and other pertinent info. @ -23-year-old female presenting with chief complaint of left eye foreign body and irritation. Occurred this afternoon. Tetanus is up-to-date. No foreign bodies identified on Bynum lamp examination or slit-lamp examination. Patient is provided with sulfacetamide eyedrops and ketorolac eyedrops, instructed to follow-up with ophthalmology tomorrow. Discharged home. Follow-up with PCP. Report back to ER with any new or worsening symptoms. Discussed return parameters and answered all questions. Patient conveyed verbal understanding and agreed to the plan. I discussed this case in detail with my attending Dr. Travis Undiagnosed new problem with uncertain prognosis? @ -No Drug Therapy requiring intensive monitoring for toxicity (Heparin, Nitro, Insulin, Cardizem)? @ -No Were any procedures done? @ -No Diagnosis/symptom? @ -Corneal abrasion, corneal foreign body Acute, or Chronic, or Acute on Chronic? @ -Acute Uncomplicated (without systemic symptoms) or Complicated (systemic symptoms)? @ -Uncomplicated Side effects of treatment? @ -No Exacerbation, Progression, or Severe Exacerbation? @ -No Poses a threat to life or bodily function? How? (Chest pain, [place], [place], pneumonia, PE, COPD, DKA, ARF, appy, cholecystitis, CVA, Diverticulitis, Homicidal, Suicidal, threat to staff... and all critical care pts) @ -No Disposition Clinical Impression: Corneal abrasion, Foreign body of cornea Disposition: HOME SELF-CARE Condition: Good Instructions (If sedation given, give patient instructions): Corneal Abrasion (ED), Eye Foreign Body (ED) Additional Instructions: Follow-up with ophthalmology. Report back to ER with any new or worsening symptoms. Ketorolac eyedrops: apply 1 drop to the affected eye up to 4 times daily as needed for pain Sulfacetamide eyedrops: apply 2 drops to the affected eye 4 times daily to prevent infection Is patient prescribed a controlled substance at d/c from ED?: No Referrals: Sami Byrd MD [Primary Care Provider] - 1-2 days Anthony Menon MD [STAFF PHYSICIAN] - 1-2 days Time of Disposition: 22:11
[2023-10-13] MEDS: PROPARACAINE 0.5% OPHTH DROPS 15 ML BTL LEFT EYE STA (22:34)
[2023-10-13] MEDS: KETOROLAC 0.5% OPHTH DROPS 5 ML BTL LEFT EYE SCH (22:34)
[2023-10-13] MEDS: FLUORESCEIN STRIPS 1 MG STRIP LEFT EYE ONE (22:34)
[2023-10-13] MEDS: SULFACETAMIDE SOD 10% OPHTH DROPS 15 ML BTL LEFT EYE STA (22:35)
[2023-10-13 22:45] VITALS: BP 119/67; PULSE 76; TEMP 98.7
== END 2023-10-13 22:39 | disposition home or self-care (01) ==
LOC: EC 19:50
DX: T15.02XA Foreign body in cornea, left eye, initial encounter (principal); F17.290 Nicotine dependence, other tobacco product, uncomplicated; Z88.8 Allergy status to other drugs, medicaments and biological substances
CPT/HCPCS: 99283

== ENCOUNTER → 2023-12-01 | Outpatient (CLI) | payer OTHER ==
--- NOTE | 2023-12-01 14:37 | P.PAINPG ---
PQRS Measure Charge Sheet Comment: HISTORY OF PRESENT ILLNESS: A 23 yr old female, previously from Dr Courtney presents today w severe and chronic R hip pain secondary to joint effusion for medication refills. Pt states pain level is provoked at 5/10 in intensity, constant, localized in the R hip, sharp in character w shooting pain towards the R knee. Pain is provoked by standing / walking for periods >30 min. Pain is alleviated by PT x 3 wks in 2020, ice, medications, use of a cane for ambulatory assistance, sitting, repositioning and rest . Pt stated she needs [place] more than her Cannabis use as she only uses it very infrequently, even while a patient of Dr Courtney. Interventional procedures include DENIES Medications include [place] 10/325mg #60, Cannabis which pt states she stopped REVIEW OF ORGAN SYSTEMS: CONSTITUTIONAL: No fevers or chills. No recent weight loss. NEUROLOGICAL: + numbness and tingling along the distal extremities. No seizure disorders or headaches. MUSCULOSKELETAL: + pain PSYCHIATRIC: Denies current depression or suicidal thoughts. Physical Examinations : Constitutional : Cooperative , not in acute distress . Neurologic : Cranial nerve II to XII intact. No focal neurological deficits. Psychiatric : alert & oriented x 3. Matching mood & appropriate affect. Judgment & insight intact. Musculoskeletal : Cervical Spine Motor strength in the deltoid and biceps: Normal right side. Normal Left side Motor strength biceps and the wrist extensors: Normal right side . Normal left side Motor strength in the triceps muscle: Normal right side. Normal left side Deep tendon reflexes: Normal at the biceps. Normal at Brachioradialis. Normal at triceps Vertebral body tenderness to deep palpation over Cervical facet loading test: positive bilaterally Spurling test: positive bilaterally Neck distraction test: positive bilaterally Leo sign: positive bilaterally Lumbar spine +RLE incisional scars, 1+ pitting edema Motor strength lower extremities ,thigh and legs 5/5 Right side , 5/5 Left side Deep tendon reflexes : Normal Knee Jerk. Normal Ankle Jerk Vertebral body tenderness over Figueroa Test positive Lumbar facet Loading Test: positive Right / positive Left Range of motion of the lumbar spine Flexion 30 degrees, extension 10 degrees Straight Leg Raise test: Left/ Right positive at degree Henry test: positive right / positive left. Severe tenderness over the Sacroiliac joint on the Right / Left sides Gaenslen test: positive bilaterally Seated flexion test: positive bilaterally. Sacral spine : Severe tenderness over the Sacroiliac joint: right side / left side Range of motion: Flexion of the lumbar spine <60 degrees Range of motion: Extension of the lumbar spine <20 degrees Gaenslen's Test positive Monico's Test positive Henry test: positive right side / left side Thigh Thrust Test Sacral Thrust Test Imaging: CT noncontrast of the right pelvis from 12/06/21 reviewed Assessment/ Plan : R hip joint effusion Recommendation of medication management. [place] 10/325mg #60 UDS from 08/05/23 reviewed and consistent. Use, side effects, adverse reactions and safe storage discussed. Opiate/ narcotic agreement signed 06/10/23. Risks, benefits of procedure discussed and patient verbalized understanding. Admits to anti- coagulant use or medical history of diabetes. Protocol for discontinuation/ continuation of medications peir procedure discussed. All questions answered. I have spent greater than 30 minutes on patient care today. Dr Robbins was available by phone for the evaluation of this patient. The time was used to review the medical records including relevant urine studies and Prescription history (MAPs), review of the available imaging, evaluation and examination of the patient, coordination of care with the medical staff and if applicable referring physicians, as well as creation of the medical record PQRS Narrative: Smoking Status Never smoker Hx Alcohol Use (MH) No Home Medications: Ambulatory Orders Pnv No.95/Ferrous Fum/Folic AC [ Multivitamin Tablet] 1 tab PO ONCE 07/21/21 Ibuprofen [Motrin] 600 mg PO Q6HR PRN #30 tab 07/23/21 Cyclobenzaprine [Flexeril] 10 mg PO TID PRN #20 tab 06/10/22 Ibuprofen [Motrin] 800 mg PO Q8H PRN #20 tab 06/10/22 Sulfamethox-Tmp 800-160Mg [Bactrim DS 800-160 mg] 1 tab PO Q12HR 3 Days #6 tab 12/19/22 Sulfamethox-Tmp 800-160Mg [Bactrim Ds] 1 each PO Q12HR #6 tab 12/19/22 Amoxic-Pot Clav 875-125Mg [Augmentin 875-125] 1 tab PO BID 10 Days #20 tab 02/20/23 Benzocaine/Menthol [Cepacol Sore Throat Lozenge] 1 each MM Q4H PRN #30 lozenge 02/20/23 Cetirizine HCl [Zyrtec] 5 mg PO DAILY #14 tab 02/20/23 HYDROcodone/APAP 10-325MG [[place] 10-325] 1 tab PO BID PRN 30 Days #60 tab 12/01/23 HYDROcodone/APAP 10-325MG [[place] 10-325] 1 tab PO BID PRN 30 Days #60 tab 12/01/23 Controlled Substance Measures - Controlled Substance Measures Is patient prescribed a controlled substance at discharge?: Yes When asked, does pt state using other controlled substances?: No If prescribed controlled substance>3 days was MAPS reviewed?: Yes
[2023-12-01 14:39] VITALS: BP 127/79; PULSE 89; RESP 16
== END ==
LOC: PNWHC3 14:16
PROVIDERS: ATTEND Specialist
DX: M25.451 Effusion, right hip (principal); Z88.1 Allergy status to other antibiotic agents; F12.90 Cannabis use, unspecified, uncomplicated
CPT/HCPCS: 99211

== ENCOUNTER 2024-01-23 13:32 | Emergency (ER) | payer OTHER ==
--- NOTE | 2024-01-23 13:50 | ED ---
Abdominal Pain HPI - General Chief Complaint: Abdominal Pain Stated Complaint: abd pain Time Seen by Provider: 01/23/24 13:47 Source: patient, RN notes reviewed Mode of arrival: ambulatory Limitations: no limitations - History of Present Illness Initial Comments: This is a 23-year-old female who presents to the emergency department for right upper quadrant pain. She first noticed this 3 months ago, but states that over the last couple of days it has gotten much worse. Denies any nausea or vomiting. Believes that the pain is worse after eating fatty foods. She has some radiation of pain to the back. She has not had this pain evaluated before and d enies any known problems with her gallbladder. MD Complaint: abdominal pain - Related Data Home Medications Medication Instructions Recorded Confirmed Pnv No.95/Ferrous Fum/Folic AC 1 tab PO ONCE 07/21/21 12/01/23 [ Multivitamin Tablet] Previous Rx's Medication Instructions Recorded Ibuprofen [Motrin] 600 mg PO Q6HR PRN #30 tab 07/23/21 Cyclobenzaprine [Flexeril] 10 mg PO TID PRN #20 tab 06/10/22 Ibuprofen [Motrin] 800 mg PO Q8H PRN #20 tab 06/10/22 Sulfamethox-Tmp 800-160Mg [Bactrim 1 tab PO Q12HR 3 Days #6 tab 12/19/22 DS 800-160 mg] Sulfamethox-Tmp 800-160Mg [Bactrim 1 each PO Q12HR #6 tab 12/19/22 Ds] Amoxic-Pot Clav 875-125Mg 1 tab PO BID 10 Days #20 tab 02/20/23 [Augmentin 875-125] Benzocaine/Menthol [Cepacol Sore 1 each MM Q4H PRN #30 lozenge 02/20/23 Throat Lozenge] Cetirizine HCl [Zyrtec] 5 mg PO DAILY #14 tab 02/20/23 HYDROcodone/APAP 10-325MG [[place] 1 tab PO BID PRN 30 Days #60 tab 12/01/23 10-325] HYDROcodone/APAP 10-325MG [[place] 1 tab PO BID PRN 30 Days #60 tab 12/01/23 10-325] Celecoxib 200 mg PO BID PRN #30 cap 01/23/24 Famotidine [Pepcid] 20 mg PO DAILY #20 tablet 01/23/24 Allergies Allergy/AdvReac Type Severity Reaction Status Date / Time doxycycline Allergy Rash/Hives Verified 01/23/24 13:44 Review of Systems ROS Statement: Those systems with pertinent positive or pertinent negative responses have been documented in the HPI. ROS Other: All systems not noted in ROS Statement are negative. Past Medical History Past Medical History: No Reported History History of Any Multi-Drug Resistant Organisms: None Reported Past Surgical History: Orthopedic Surgery Past Anesthesia/Blood Transfusion Reactions: No Reported Reaction Past Psychological History: No Psychological Hx Reported Smoking Status: Vaper Past Alcohol Use History: Rare Past Drug Use History: Marijuana - Past Family History Father Family Medical History: Diabetes Mellitus General Exam - General Exam Comments Initial Comments: Visual Physical Exam Vital signs reviewed General: Well-appearing, nontoxic, no acute distress. Head: Normocephalic, atraumatic Eyes: PERRLA, EOMI ENT: Airway patent Chest: Nonlabored breathing Skin: No visual rash, normal skin tone Neuro: Alert and oriented 3 Musculoskeletal: No gross abnormalities Limitations: no limitations General appearance: alert, in no apparent distress Head exam: Present: atraumatic, normocephalic, normal inspection Respiratory exam: Present: normal lung sounds bilaterally. Absent: respiratory distress, wheezes, rales, rhonchi, stridor Cardiovascular Exam: Present: regular rate, normal rhythm, normal heart sounds. Absent: systolic murmur, diastolic murmur, rubs, gallop, clicks GI/Abdominal exam: Present: soft, tenderness (RUQ), normal bowel sounds. Absent: distended Neurological exam: Present: alert, oriented X3, CN II-XII intact Psychiatric exam: Present: normal affect, normal mood Skin exam: Present: warm, dry, intact, normal color. Absent: rash Course Vital Signs 01/23/24 13:42 Temperature 98.2 F Pulse Rate 72 Respiratory 18 Rate Blood Pressure 108/68 O2 Sat by Pulse 99 Oximetry Medical Decision Making - Medical Decision Making This is a 23 year old female who presents to the emergency department for abdominal pain. Was pt. sent in by a medical professional or institution? @ -No Did you speak to anyone other than the patient for history? @ -No Did you review nursing and triage notes? @ -Yes, and I agree, it is accurate with regards to the patient's symptoms. Were old charts reviewed? @ -No Differential Diagnosis? @ -Differential Abdominal Pain Women: Appendicitis, Cholecystitis, diverticulosis, ischemic bowel, pancreatitis, hepatitis, UTI, gastroenteritis, AAA, incarcerated hernia, bowel obstruction, constipation, inflammatory bowel, hepatitis, peptic ulcer disease, splenic infarction, perforated viscus, vulvitis, ovarian torsion, PID, kidney stone, placenta abruption, this is not meant to be an all-inclusive list EKG interpreted by me (3pts min.)? @ -Not obtained X-rays interpreted by me (1pt min.)? @ -Not obtained CT interpreted by me (1pt min.)? @ -Not obtained U/S interpreted by me (1pt. min.)? @ -Gallbladder ultrasound obtained. My interpretation identifies no evidence of cholelithiasis. What testing was considered but not performed? (CT, X-rays, U/S, labs)? Why? @ -None What meds were considered but not given? Why? @ -None Did you discuss the management of the patient with other professionals? @ -No Did you reconcile home meds? @ -No Was smoking cessation discussed for >3mins.? @ -No Was critical care preformed (if so, how long)? @ -No Were there social determinants of health that impacted care today? How? (Homelessness, low income, unemployed, alcoholism, drug addiction, transportation, low edu. Level, literacy, decrease access to med. care, correction, rehab)? @ -No Was there de-escalation of care discussed even if they declined? (Discuss DNR or withdrawal of care, Hospice)? @ -No What co-morbidities impacted this encounter? (DM, HTN, Smoking, COPD, CAD, Cancer, CVA, Hep., AIDS, mental health diagnosis, sleep apnea, morbid obesity)? @ -None Was patient admitted / discharged? @ -Discharged. Lab work unremarkable. Gallbladder ultrasound obtained revealing no acute process. Symptoms well-controlled in the emergency department. Discussed the possibility of biliary dyskinesia, in which case she would need a HIDA scan for further evaluation. Prescription for Celebrex and famotidine provided with dosing instructions reviewed. Advised to follow a bland and low-fat diet for the meantime to reduce the risk of symptom recurrence. She is also advised to contact her primary care provider for reevaluation and discussion of the HIDA scan. Undiagnosed new problem with uncertain prognosis? @ -None Drug Therapy requiring intensive monitoring for toxicity (Heparin, Nitro, Insulin, Cardizem)? @ -None Were any procedures done? @ -None Diagnosis/symptom? @ -Abdominal pain Acute, or Chronic, or Acute on Chronic? @ -Chronic Uncomplicated (without systemic symptoms) or Complicated (systemic symptoms)? @ -Uncomplicated Side effects of treatment? @ -None Exacerbation, Progression, or Severe Exacerbation] @ -Progression/Exacerbation Poses a threat to life or bodily function? @ -No Return precautions reviewed in depth, the patient is instructed to return to the emergency department with any new, worsening, or concerning symptoms. Patient verbalized understanding. This case was discussed in detail with the attending ED physician, Dr. Burns. Presentation, findings, and treatment plan discussed in detail as well. - Lab Data Result diagrams: 01/23/24 14:03 01/23/24 14:03 Lab Results 01/23/24 01/23/24 01/23/24 Range/Units 14:03 14:03 14:03 WBC 9.1 (3.8-10.6) k/uL RBC 4.83 (3.80-5.40) m/uL Hgb 14.4 (11.4-16.0) gm/dL Hct 42.5 (34.0-46.0) % MCV 88.0 (80.0-100.0) fL MCH 29.7 (25.0-35.0) pg MCHC 33.8 (31.0-37.0) g/dL RDW 12.4 (11.5-15.5) % Plt Count 197 (150-450) k/uL MPV 8.6 Neutrophils % 74 % Lymphocytes % 18 % Monocytes % 5 % Eosinophils % 1 % Basophils % 0 % Neutrophils # 6.7 (1.3-7.7) k/uL Lymphocytes # 1.7 (1.0-4.8) k/uL Monocytes # 0.4 (0-1.0) k/uL Eosinophils # 0.1 (0-0.7) k/uL Basophils # 0.0 (0-0.2) k/uL Sodium (137-145) mmol/L Potassium (3.5-5.1) mmol/L Chloride (98-107) mmol/L Carbon Dioxide (22-30) mmol/L Anion Gap mmol/L BUN (7-17) mg/dL Creatinine (0.52-1.04) mg/dL Est GFR (CKD-EPI)AfAm (>60 ml/min/1.73 sqM) Est GFR (CKD-EPI)NonAf (>60 ml/min/1.73 sqM) Glucose (74-99) mg/dL Plasma Lactic Acid Maximiliano (0.7-2.0) mmol/L Calcium (8.4-10.2) mg/dL Total Bilirubin (0.2-1.3) mg/dL AST (14-36) U/L ALT (4-34) U/L Alkaline Phosphatase (38-126) U/L Total Protein (6.3-8.2) g/dL Albumin (3.5-5.0) g/dL Amylase (30-110) U/L Lipase (23-300) U/L Urine Color Colorless Urine Appearance Cloudy H (Clear) Urine pH 8.0 (5.0-8.0) Ur Specific [place] 1.014 (1.001-1.035) Urine Protein Negative (Negative) Urine Glucose (UA) Negative (Negative) Urine Ketones Negative (Negative) Urine Blood Negative (Negative) Urine Nitrite Negative (Negative) Urine Bilirubin Negative (Negative) Urine Urobilinogen <2.0 (<2.0) mg/dL Ur Leukocyte Esterase Negative (Negative) Urine RBC <1 (0-5) /hpf Urine WBC 4 (0-5) /hpf Ur Squamous Epith Cells 10 H (0-4) /hpf Urine Mucus Rare H (None) /hpf Urine HCG, Qual Not Detected (Not Detectd) 01/23/24 01/23/24 Range/Units 14:03 14:03 WBC (3.8-10.6) k/uL RBC (3.80-5.40) m/uL Hgb (11.4-16.0) gm/dL Hct (34.0-46.0) % MCV (80.0-100.0) fL MCH (25.0-35.0) pg MCHC (31.0-37.0) g/dL RDW (11.5-15.5) % Plt Count (150-450) k/uL MPV Neutrophils % % Lymphocytes % % Monocytes % % Eosinophils % % Basophils % % Neutrophils # (1.3-7.7) k/uL Lymphocytes # (1.0-4.8) k/uL Monocytes # (0-1.0) k/uL Eosinophils # (0-0.7) k/uL Basophils # (0-0.2) k/uL Sodium 139 (137-145) mmol/L Potassium 4.0 (3.5-5.1) mmol/L Chloride 106 (98-107) mmol/L Carbon Dioxide 26 (22-30) mmol/L Anion Gap 7 mmol/L BUN 14 (7-17) mg/dL Creatinine 0.61 (0.52-1.04) mg/dL Est GFR (CKD-EPI)AfAm >90 (>60 ml/min/1.73 sqM) Est GFR (CKD-EPI)NonAf >90 (>60 ml/min/1.73 sqM) Glucose 88 (74-99) mg/dL Plasma Lactic Acid Maximiliano 0.7 (0.7-2.0) mmol/L Calcium 9.6 (8.4-10.2) mg/dL Total Bilirubin 0.9 (0.2-1.3) mg/dL AST 17 (14-36) U/L ALT 10 (4-34) U/L Alkaline Phosphatase 56 (38-126) U/L Total Protein 7.6 (6.3-8.2) g/dL Albumin 4.7 (3.5-5.0) g/dL Amylase 43 (30-110) U/L Lipase 75 (23-300) U/L Urine Color Urine Appearance (Clear) Urine pH (5.0-8.0) Ur Specific [place] (1.001-1.035) Urine Protein (Negative) Urine Glucose (UA) (Negative) Urine Ketones (Negative) Urine Blood (Negative) Urine Nitrite (Negative) Urine Bilirubin (Negative) Urine Urobilinogen (<2.0) mg/dL Ur Leukocyte Esterase (Negative) Urine RBC (0-5) /hpf Urine WBC (0-5) /hpf Ur Squamous Epith Cells (0-4) /hpf Urine Mucus (None) /hpf Urine HCG, Qual (Not Detectd) - Radiology Data Radiology results: report reviewed, image reviewed Disposition Clinical Impression: Abdominal pain Disposition: HOME SELF-CARE Instructions (If sedation given, give patient instructions): Abdominal Pain (ED), Biliary Dyskinesia (DC) Additional Instructions: Return to the emergency department with any new, worsening, or concerning symptoms. Take the Celebrex twice daily as needed for pain relief. If you choose to take this, do not take any other anti-inflammatories such as ibuprofen, take one or the other. Begin taking the Pepcid daily as well. Follow a bland and low-fat diet for the meantime to reduce the risk of symptom recurrence. Contact your primary care provider regarding your symptoms and request a HIDA scan for further evaluation of your gallbladder function. Follow up with your primary care provider in 1-2 days. Prescriptions: Celecoxib 200 mg PO BID PRN #30 cap PRN Reason: Pain Famotidine [Pepcid] 20 mg PO DAILY #20 tablet Is patient prescribed a controlled substance at d/c from ED?: No Referrals: Sami Song MD [REFERRING] - 1-2 days Time of Disposition: 16:23
[2024-01-23 14:12] VITALS: RESP 18
[2024-01-23 14:29] LABS: Appearance,Urine Cloudy (Clear); Bilirubin,Urine Negative (Negative); Blood,Urine Negative (Negative); Color,Urine Colorless; Glucose,Urine (UA) Negative (Negative); Ketones,Urine Negative (Negative); Leukocyte Esterase,Urine Negative (Negative); Mucus,Urine Rare /hpf; Nitrite,Urine Negative (Negative); Protein,Urine Negative (Negative); RBC,Urine <1 /hpf (0-5); Specific Gravity,Urine 1.014 (1.001-1.035); Squamous Epithelial Cell,Urine 10 /hpf (0-4); Urobilinogen,Urine <2.0 mg/dL (<2.0); WBC,Urine 4 /hpf (0-5)
[2024-01-23 15:37] LABS: Basophils % (A) 0 %; Eosinophils # (A) 0.1 k/uL (0-0.7); Eosinophils % (A) 1 %; HCT 42.5 % (34.0-46.0); HGB 14.4 gm/dL (11.4-16.0); Lymphocytes # (A) 1.7 k/uL (1.0-4.8); Lymphocytes % (A) 18 %; MCH 29.7 pg (25.0-35.0); MCHC 33.8 g/dL (31.0-37.0); Mean Platelet Volume 8.6; Monocytes # (A) 0.4 k/uL (0-1.0); Monocytes % (A) 5 %; Neutrophils # (A) 6.7 k/uL (1.3-7.7); Neutrophils % (A) 74 %; Platelet Count 197 k/uL (150-450); RBC 4.83 m/uL (3.80-5.40); RDW 12.4 % (11.5-15.5); WBC 9.1 k/uL (3.8-10.6)
[2024-01-23] MEDS: KETOROLAC 15 MG/ML 1 ML VIAL IVP STA (15:45)
[2024-01-23] MEDS: SODIUM CHLORIDE 0.9% 1,000 ML IV STA (15:46)
[2024-01-23] MEDS: FAMOTIDINE 20 MG/2 ML VIAL IV STA (15:48)
--- NOTE | 2024-01-23 15:52 | US ---
EXAMINATION TYPE: US gallbladder DATE OF EXAM: 01/23/2024 COMPARISON: 01/18/2023 CLINICAL INDICATION: Female, 23 years old with history of RUQ pain; RUQ pain, normal GB US at [facility] 2 weeks ago TECHNIQUE: Multiple sonographic images of the right upper quadrant are obtained. FINDINGS: EXAM MEASUREMENTS: Liver Length: 14.4 cm Gallbladder Wall: 0.2 cm CBD: 0.4 cm Right Kidney: 9.7x3.7x5.9 cm V[employer]ICAL [employer] NOTES: Pancreas: wnl Liver: wnl Gallbladder: wnl, not fully distended, pt. states she ate 5 hours ago Evidence for sonographic Whipple's sign: no CBD: wnl Right Kidney: No hydronephrosis or masses seen IMPRESSION: No evidence for acute process.
[2024-01-23 16:01] LABS: ALT 10 U/L (4-34); AST 17 U/L (14-36); African American GFR (CKD) >90 (>60 ml/min/1.73 sqM); Albumin 4.7 g/dL (3.5-5.0); Alkaline Phosphatase 56 U/L (38-126); Amylase 43 U/L (30-110); Anion Gap 7 mmol/L; Blood Urea Nitrogen 14 mg/dL (7-17); Calcium 9.6 mg/dL (8.4-10.2); Carbon Dioxide 26 mmol/L (22-30); Chloride 106 mmol/L (98-107); Glucose 88 mg/dL (74-99); Lipase 75 U/L (23-300); Non-African American GFR(CKD) >90 (>60 ml/min/1.73 sqM); Sodium 139 mmol/L (137-145); Total Bilirubin 0.9 mg/dL (0.2-1.3); Total Protein 7.6 g/dL (6.3-8.2)
[2024-01-23] MEDS: ACET/COD 300 MG/30 MG STARTER PACK 6 TAB BTL PO STA (17:06)
[2024-01-23 17:12] VITALS: BP 115/78; PULSE 60; TEMP 97.8
== END 2024-01-23 17:13 | disposition home or self-care (01) ==
LOC: EC 13:32
DX: R10.11 Right upper quadrant pain (principal); F17.290 Nicotine dependence, other tobacco product, uncomplicated; Z88.8 Allergy status to other drugs, medicaments and biological substances
CPT/HCPCS: 36415; 80053; 82150; 83605; 83690; 85025; 81001; 81025; 76705; 99284; 96374; 96375; 96361; J3490; J1885

== ENCOUNTER → 2024-01-26 | Outpatient (CLI) | payer OTHER ==
[2024-01-26 11:29] VITALS: BP 118/77; PULSE 76
--- NOTE | 2024-01-26 15:14 | P.PAINPG ---
PQRS Measure Charge Sheet Comment: HISTORY OF PRESENT ILLNESS: A 23 yr old female, previously from Dr Courtney presents today w severe and chronic R hip pain secondary to joint effusion for medication refills. Pt states pain level is provoked at 5 /10 in intensity, constant, localized in the R hip, sharp in character w shooting pain towards the R knee. Pain is provoked by weight bearing activity for periods >30 min. Pain is alleviated by PT x 3 wks in 2020, ice, medications, use of a cane for ambulatory assistance, sitting, repositioning and rest . Pt stated she needs [place] more than her Cannabis use as she only uses it very infrequently, even while a patient of Dr Courtney. Interventional procedures include DENIES Medications include [place] 10/325mg #60, Cannabis which pt states she stopped REVIEW OF ORGAN SYSTEMS: CONSTITUTIONAL: No fevers or chills. No recent weight loss. NEUROLOGICAL: + numbness and tingling along the distal extremities. No seizure disorders or headaches. MUSCULOSKELETAL: + pain PSYCHIATRIC: Denies current depression or suicidal thoughts. Physical Examinations : Constitutional : Cooperative , not in acute distress . Neurologic : Cranial nerve II to XII intact. No focal neurological deficits. Psychiatric : alert & oriented x 3. Matching mood & appropriate affect. Judgment & insight intact. Musculoskeletal : Cervical Spine Motor strength in the deltoid and biceps: Normal right side. Normal Left side Motor strength biceps and the wrist extensors: Normal right side . Normal left side Motor strength in the triceps muscle: Normal right side. Normal left side Deep tendon reflexes: Normal at the biceps. Normal at Brachioradialis. Normal at triceps Vertebral body tenderness to deep palpation over Cervical facet loading test: positive bilaterally Spurling test: positive bilaterally Neck distraction test: positive bilaterally Leo sign: positive bilaterally Lumbar spine +RLE incisional scars, 1+ pitting edema Motor strength lower extremities ,thigh and legs 5/5 Right side , 5/5 Left side Deep tendon reflexes : Normal Knee Jerk. Normal Ankle Jerk Vertebral body tenderness over Figueroa Test positive Lumbar facet Loading Test: positive Right / positive Left Range of motion of the lumbar spine Flexion 30 degrees, extension 10 degrees Straight Leg Raise test: Left/ Right positive at degree Henry test: positive right / positive left. Severe tenderness over the Sacroiliac joint on the Right / Left sides Gaenslen test: positive bilaterally Seated flexion test: positive bilaterally. Sacral spine : Severe tenderness over the Sacroiliac joint: right side / left side Range of motion: Flexion of the lumbar spine <60 degrees Range of motion: Extension of the lumbar spine <20 degrees Gaenslen's Test positive Monico's Test positive Henry test: positive right side / left side Thigh Thrust Test Sacral Thrust Test Imaging: CT noncontrast of the right pelvis from 12/06/21 reviewed Assessment/ Plan : R hip joint effusion Recommendation of medication management. [place] 10/325mg #60 UDS from 08/05/23 reviewed and consistent. Use, side effects, adverse reactions and safe storage discussed. Opiate/ narcotic agreement signed 06/10/23. Risks, benefits of procedure discussed and patient verbalized understanding. Admits to anti- coagulant use or medical history of diabetes. Protocol for discontinuation/ continuation of medications procedure discussed. All questions answered. I have spent greater than 30 minutes on patient care today. Dr Robbins was available by phone for the evaluation of this patient. The time was used to review the medical records including relevant urine studies and Prescription history (MAPs), review of the available imaging, evaluation and examination of the patient, coordination of care with the medical staff and if applicable referring physicians, as well as creation of the medical record PQRS Narrative: Smoking Status Never smoker Hx Alcohol Use (MH) No Home Medications: Ambulatory Orders Pnv No.95/Ferrous Fum/Folic AC [ Multivitamin Tablet] 1 tab PO ONCE 07/21/21 Ibuprofen [Motrin] 600 mg PO Q6HR PRN #30 tab 07/23/21 Cyclobenzaprine [Flexeril] 10 mg PO TID PRN #20 tab 06/10/22 Ibuprofen [Motrin] 800 mg PO Q8H PRN #20 tab 06/10/22 Sulfamethox-Tmp 800-160Mg [Bactrim DS 800-160 mg] 1 tab PO Q12HR 3 Days #6 tab 12/19/22 Sulfamethox-Tmp 800-160Mg [Bactrim Ds] 1 each PO Q12HR #6 tab 12/19/22 Amoxic-Pot Clav 875-125Mg [Augmentin 875-125] 1 tab PO BID 10 Days #20 tab 02/20/23 Benzocaine/Menthol [Cepacol Sore Throat Lozenge] 1 each MM Q4H PRN #30 lozenge 02/20/23 Cetirizine HCl [Zyrtec] 5 mg PO DAILY #14 tab 02/20/23 Celecoxib 200 mg PO BID PRN #30 cap 01/23/24 Famotidine [Pepcid] 20 mg PO DAILY #20 tablet 01/23/24 HYDROcodone/APAP 10-325MG [[place] 10-325] 1 tab PO BID PRN 30 Days #60 tab 01/26/24 HYDROcodone/APAP 10-325MG [[place] 10-325] 1 tab PO BID PRN 30 Days #60 tab 01/26/24 Controlled Substance Measures - Controlled Substance Measures Is patient prescribed a controlled substance at discharge?: Yes When asked, does pt state using other controlled substances?: No If prescribed controlled substance>3 days was MAPS reviewed?: Yes
== END ==
LOC: PNWHC3 08:56
PROVIDERS: ATTEND Specialist
DX: M16.11 Unilateral primary osteoarthritis, right hip (principal); M25.541 Pain in joints of right hand; Z88.1 Allergy status to other antibiotic agents
CPT/HCPCS: 99211

== ENCOUNTER 2024-03-22 01:53 | Emergency (ER) | payer OTHER ==
--- NOTE | 2024-03-22 03:02 | ED ---
Lower Extremity Injury HPI - General Chief Complaint: Extremity Injury, Lower Stated Complaint: Knee Pain Time Seen by Provider: 03/22/24 02:21 Source: patient Mode of arrival: ambulatory Limitations: no limitations - History of Present Illness Initial Comments: 23-year-old female presenting with chief complaint of pain behind the right knee. Pain started tonight. Patient feels a small tender bump behind the knee. She is concerned for possible cyst. Pain is worse with weightbearing. Patient states that she works a job where she is on her feet all day and is concerned about being able to perform her job due to her pain. No injury or trauma. No numbness tingling or weakness. No swelling. No erythema or fevers. - Related Data Home Medications Medication Instructions Recorded Confirmed Pnv No.95/Ferrous Fum/Folic AC 1 tab PO ONCE 07/21/21 12/01/23 [ Multivitamin Tablet] Previous Rx's Medication Instructions Recorded Ibuprofen [Motrin] 600 mg PO Q6HR PRN #30 tab 07/23/21 Cyclobenzaprine [Flexeril] 10 mg PO TID PRN #20 tab 06/10/22 Ibuprofen [Motrin] 800 mg PO Q8H PRN #20 tab 06/10/22 Sulfamethox-Tmp 800-160Mg [Bactrim 1 tab PO Q12HR 3 Days #6 tab 12/19/22 DS 800-160 mg] Sulfamethox-Tmp 800-160Mg [Bactrim 1 each PO Q12HR #6 tab 12/19/22 Ds] Amoxic-Pot Clav 875-125Mg 1 tab PO BID 10 Days #20 tab 02/20/23 [Augmentin 875-125] Benzocaine/Menthol [Cepacol Sore 1 each MM Q4H PRN #30 lozenge 02/20/23 Throat Lozenge] Cetirizine HCl [Zyrtec] 5 mg PO DAILY #14 tab 02/20/23 Celecoxib 200 mg PO BID PRN #30 cap 01/23/24 Famotidine [Pepcid] 20 mg PO DAILY #20 tablet 01/23/24 HYDROcodone/APAP 10-325MG [[place] 1 tab PO BID PRN 30 Days #60 tab 01/26/24 10-325] HYDROcodone/APAP 10-325MG [[place] 1 tab PO BID PRN 30 Days #60 tab 01/26/24 10-906] Allergies Allergy/AdvReac Type Severity Reaction Status Date / Time doxycycline Allergy Rash/Hives Verified 03/22/24 02:13 Review of Systems ROS Statement: Those systems with pertinent positive or pertinent negative responses have been documented in the HPI. ROS Other: All systems not noted in ROS Statement are negative. Past Medical History Past Medical History: No Reported History History of Any Multi-Drug Resistant Organisms: None Reported Past Surgical History: Orthopedic Surgery Past Anesthesia/Blood Transfusion Reactions: No Reported Reaction Past Psychological History: No Psychological Hx Reported Smoking Status: Vaper - Past Family History Father Family Medical History: Diabetes Mellitus General Exam Limitations: no limitations General appearance: alert, in no apparent distress Head exam: Present: atraumatic, normocephalic Eye exam: Present: normal appearance, EOMI Neck exam: Present: normal inspection. Absent: meningismus Respiratory exam: Absent: respiratory distress Right Knee exam: Present: normal inspection, full ROM, tenderness (Leonard's cyst) Neurological exam: Present: alert, oriented X3 Psychiatric exam: Present: normal affect, normal mood Skin exam: Present: warm, dry Course Vital Signs 03/22/24 03/22/24 02:06 03:19 Temperature 97.7 F 98.1 F Pulse Rate 58 L 61 Respiratory 20 18 Rate Blood Pressure 104/60 105/68 O2 Sat by Pulse 100 98 Oximetry Medical Decision Making - Medical Decision Making Was pt. sent in by a medical professional or institution (, PA, LOAF COUNTER, urgent care, hospital, or alf...) When possible be specific @ -No Did you speak to anyone other than the patient for history (EMS, parent, family, police, friend...)? What history was obtained from this source @ -No Did you review nursing and triage notes (agree or disagree)? Why? @ -I reviewed and agree with nursing and triage notes Were old charts reviewed (outside hosp., previous admission, EMS record, old EKG, old radiological studies, urgent care reports/EKG's, alf records)? Report findings @ -No old charts were reviewed Differential Diagnosis (chest pain, altered mental status, abdominal pain women, abdominal pain men, vaginal bleeding, weakness, fever, dyspnea, syncope, headache, dizziness, GI bleed, back pain, seizure, CVA, palpatations, mental health, musculoskeletal)? @ -Differential Musculoskeletal Muscular strain, contusion, ligament sprain, fracture, arthritis, septic arthritis, bursitis, cellulitis, muscle spasm, nerve compression, DVT, arterial occlusion, herpes zoster, electrolyte abnormality, tumor.... This is not meant to be in all inclusive list EKG interpreted by me (3pts min.). @ -As above X-rays interpreted by me (1pt min.). @ -None done CT interpreted by me (1pt min.). @ -None done U/S interpreted by me (1pt. min.). @ -None done What testing was considered but not performed or refused? (CT, X-rays, U/S, labs)? Why? @ -None What meds were considered but not given or refused? Why? @ -None Did you discuss the management of the patient with other professionals (professionals i.e. , PA, LOAF COUNTER, lab, RT, psych nurse, social service agency director, engineering mathematician, teacher, prison officer, rn field case manager)? Give summary @ -No Was smoking cessation discussed for >3mins.? @ -No Was critical care preformed (if so, how long)? @ -No Were there social determinants of health that impacted care today? How? (Homelessness, low income, unemployed, alcoholism, drug addiction, transportation, low edu. Level, literacy, decrease access to med. care, [facility], rehab)? @ -No Was there de-escalation of care discussed even if they declined (Discuss DNR or withdrawal of care, Hospice)? DNR status @ -No What co-morbidities impacted this encounter? (DM, HTN, Smoking, COPD, CAD, Cancer, CVA, ARF, Chemo, Hep., AIDS, mental health diagnosis, sleep apnea, morbid obesity)? @ -None Was patient admitted / discharged? Hospital course, mention meds given and route, prescriptions, significant lab abnormalities, going to OR and other pertinent info. @ -23-year-old female presenting with chief complaint of pain behind the right knee. No injury or trauma. On exam this appears consistent with a Leonard's cys t. Patient educated on today's findings and supportive management. Provided with work note. Discharged home. Follow-up with PCP. Report back to ER with any new or worsening symptoms. Discussed return parameters and answered all questions. Patient conveyed verbal understanding and agreed to the plan. I discussed this case in detail with my attending Dr. Hernandez Undiagnosed new problem with uncertain prognosis? @ -No Drug Therapy requiring intensive monitoring for toxicity (Heparin, Nitro, Insulin, Cardizem)? @ -No Were any procedures done? @ -No Diagnosis/symptom? @ -Leonard's cyst Acute, or Chronic, or Acute on Chronic? @ -Acute Uncomplicated (without systemic symptoms) or Complicated (systemic symptoms)? @ -uncomplicated Side effects of treatment? @ -No Exacerbation, Progression, or Severe Exacerbation? @ -No Poses a threat to life or bodily function? How? (Chest pain, USA, ME, pneumonia, PE, COPD, DKA, ARF, appy, cholecystitis, CVA, Diverticulitis, Homicidal, Suicidal, threat to staff... and all critical care pts) @ -No Disposition Clinical Impression: Bakers cyst Disposition: HOME SELF-CARE Condition: Good Instructions (If sedation given, give patient instructions): Leonard Cyst (ED) Additional Instructions: Follow-up with PCP and orthopedics. Report back to ER with any new or worsening symptoms. Is patient prescribed a controlled substance at d/c from ED?: No Referrals: Haleigh Tomlin MD [Primary Care Provider] - 1-2 days Benji Louie DO [Doctor of Osteopathic Medicine] - 1-2 days Time of Disposition: 03:02
[2024-03-22 03:21] VITALS: BP 105/68; PULSE 61; RESP 18; TEMP 98.1
== END 2024-03-22 03:28 | disposition home or self-care (01) ==
LOC: EC 01:53
DX: M71.21 Synovial cyst of popliteal space [Baker], right knee (principal); F17.290 Nicotine dependence, other tobacco product, uncomplicated; Z88.1 Allergy status to other antibiotic agents
CPT/HCPCS: 99283

== ENCOUNTER 2024-03-22 17:23 | Emergency (ER) | payer OTHER ==
[2024-03-22 17:34] VITALS: TEMP 97.9
--- NOTE | 2024-03-22 19:00 | ED ---
Neuro HPI - General Chief Complaint: Neuro Symptoms/Deficit Stated Complaint: migraine/lost vision Time Seen by Provider: 03/22/24 18:57 Source: patient, RN notes reviewed Mode of arrival: ambulatory Limitations: no limitations - History of Present Illness Is the patient presenting with stroke symptoms?: No Initial Comments: 23-year-old female presenting with headache x 4 hours. States she was at work when she began to experience a headache behind her right eye. She continued to work for about an hour and about 3 hours ago she began to experience blurred vision in both eyes as well as numbness in the left arm and left tongue. States symptoms lasted about 5 minutes and then resolved. She is still experiencing the headache. She states she feels very "out of it". States she does have a history of headaches. Denies fever, chills, vomiting. She has never had this before. Denies blood thinners. Denies any other health conditions. - Related Data Home Medications: Previous Rx's Medication Instructions Recorded HYDROcodone/APAP 10-325MG [[place] 1 tab PO BID PRN 30 Days #60 tab 01/26/24 10-325] Allergies/Adverse Reactions: Allergies Allergy/AdvReac Type Severity Reaction Status Date / Time doxycycline Allergy Rash/Hives Verified 03/22/24 20:34 Review of Systems ROS Statement: Those systems with pertinent positive or pertinent negative responses have been documented in the HPI. ROS Other: All systems not noted in ROS Statement are negative. General Exam Limitations: no limitations General appearance: alert, in no apparent distress Head exam: Present: atraumatic, normocephalic, normal inspection Eye exam: Present: normal appearance, PERRL, EOMI. Absent: scleral icterus, conjunctival injection, periorbital swelling ENT exam: Present: normal exam, mucous membranes moist Neck exam: Present: normal inspection. Absent: tenderness, meningismus, lymphadenopathy Respiratory exam: Present: normal lung sounds bilaterally. Absent: respiratory distress, wheezes, rales, rhonchi, stridor Cardiovascular Exam: Present: regular rate, normal rhythm, normal heart sounds. Absent: systolic murmur, diastolic murmur, rubs, gallop, clicks Neurological exam: Present: alert, oriented X3, CN II-XII intact Psychiatric exam: Present: normal affect, normal mood Skin exam: Present: warm, dry, intact, normal color. Absent: rash Stroke MDM - Lab Data Result diagrams: 03/22/24 18:58 03/22/24 18:58 Lab Results 03/22/24 03/22/24 Range/Units 18:58 18:58 WBC 9.6 (3.8-10.6) k/uL RBC 4.39 (3.80-5.40) m/uL Hgb 13.1 (11.4-16.0) gm/dL Hct 38.0 (34.0-46.0) % MCV 86.4 (80.0-100.0) fL MCH 29.9 (25.0-35.0) pg MCHC 34.5 (31.0-37.0) g/dL RDW 12.4 (11.5-15.5) % Plt Count 203 (150-450) k/uL MPV 8.3 Neutrophils % 71 % Lymphocytes % 20 % Monocytes % 6 % Eosinophils % 1 % Basophils % 0 % Neutrophils # 6.8 (1.3-7.7) k/uL Lymphocytes # 1.9 (1.0-4.8) k/uL Monocytes # 0.6 (0-1.0) k/uL Eosinophils # 0.1 (0-0.7) k/uL Basophils # 0.0 (0-0.2) k/uL Sodium 139 (137-145) mmol/L Potassium 3.8 (3.5-5.1) mmol/L Chloride 107 (98-107) mmol/L Carbon Dioxide 24 (22-30) mmol/L Anion Gap 8 mmol/L BUN 20 H (7-17) mg/dL Creatinine 0.57 (0.52-1.04) mg/dL Est GFR (CKD-EPI)AfAm >90 (>60 ml/min/1.73 sqM) Est GFR (CKD-EPI)NonAf >90 (>60 ml/min/1.73 sqM) Glucose 84 (74-99) mg/dL Calcium 9.7 (8.4-10.2) mg/dL Total Bilirubin 1.0 (0.2-1.3) mg/dL AST 20 (14-36) U/L ALT 13 (4-34) U/L Alkaline Phosphatase 41 (38-126) U/L Total Protein 6.9 (6.3-8.2) g/dL Albumin 4.5 (3.5-5.0) g/dL - Medical Decision Making Was pt. sent in by a medical professional or institution (, PA, CART ATTENDANT, urgent care, hospital, or residential...) When possible be specific @ -No Did you speak to anyone other than the patient for history (EMS, parent, family, police, friend...)? What history was obtained from this source @ -No Did you review nursing and triage notes (agree or disagree)? Why? @ -I reviewed and agree with nursing and triage notes Were old charts reviewed (outside hosp., previous admission, EMS record, old EKG, old radiological studies, urgent care reports/EKG's, residential records)? Report findings @ -No old charts were reviewed Differential Diagnosis (chest pain, altered mental status, abdominal pain women, abdominal pain men, vaginal bleeding, weakness, fever, dyspnea, syncope, headache, dizziness, GI bleed, back pain, seizure, CVA, palpatations, mental health, musculoskeletal)? @ -Differential Headache: Migraine, tension, cluster, carbon monoxide, central venous thrombosis, pension karma temporal arteritis, acute closure glaucoma, intercranial hemorrhage, mastoiditis, sinusitis, head injury, this is not meant to be an all-inclusive list. EKG interpreted by me (3pts min.). @ -As above X-rays interpreted by me (1pt min.). @ -None done CT interpreted by me (1pt min.). @ -CT of head revealed no acute abnormality U/S interpreted by me (1pt. min.). @ -None done What testing was considered but not performed or refused? (CT, X-rays, U/S, labs)? Why? @ -None What meds were considered but not given or refused? Why? @ -None Did you discuss the management of the patient with other professionals (professionals i.e. , PA, CART ATTENDANT, lab, RT, psych nurse, drug abuse social worker, traffic workforce representative, teacher, senior administrative services officer, high risk case manager)? Give summary @ -No Was smoking cessation discussed for >3mins.? @ -No Was critical care preformed (if so, how long)? @ -No Were there social determinants of health that impacted care today? How? (Homelessness, low income, unemployed, alcoholism, drug addiction, transportation, low edu. Level, literacy, decrease access to med. care, senior living, rehab)? @ -No Was there de-escalation of care discussed even if they declined (Discuss DNR or withdrawal of care, Hospice)? DNR status @ -No What co-morbidities impacted this encounter? (DM, HTN, Smoking, COPD, CAD, Cancer, CVA, ARF, Chemo, Hep., AIDS, mental health diagnosis, sleep apnea, morbid obesity)? @ -None Was patient admitted / discharged? Hospital course, mention meds given and route, prescriptions, significant lab abnormalities, going to OR and other pertinent info. @ -And was discharged. Patient was seen and evaluated for headache that began earlier today. Vital signs are within normal limits. Physical examination is unremarkable. Patient was given IV fluids and oral Tylenol. Basic lab work including CBC, CMP was obtained which was largely unremarkable. CT of head revealed no acute intracranial abnormality. Upon reevaluation, patient states symptoms are resolved. Patient is feeling stable for discharge at this time. Strict return parameters discussed and patient is agreeable to plan. Case was discussed with my ED attending that Dr. Burns. Patient discharged in stable condition. Undiagnosed new problem with uncertain prognosis? @ -No Drug Therapy requiring intensive monitoring for toxicity (Heparin, Nitro, Insulin, Cardizem)? @ -No Were any procedures done? @ -No Diagnosis/symptom? @ -Headache Acute, or Chronic, or Acute on Chronic? @ -Acute Uncomplicated (without systemic symptoms) or Complicated (systemic symptoms)? @ -Uncomplicated Side effects of treatment? @ -No Exacerbation, Progression, or Severe Exacerbation? @ -No Poses a threat to life or bodily function? How? (Chest pain, USA, ME, pneumonia, PE, COPD, DKA, ARF, appy, cholecystitis, CVA, Diverticulitis, Homicidal, Suicidal, threat to staff... and all critical care pts) @ -No - EKG Data -: EKG Interpreted by Me 03/22/24 20:22 EKG reveals sinus bradycardia with sinus arrhythmia, no ST changes. Ventricular rate 55 bpm, OH interval 175, QRS duration 84, QT/QTc 390/380 Past Medical History Past Medical History: No Reported History History of Any Multi-Drug Resistant Organisms: None Reported Past Surgical History: Orthopedic Surgery Past Anesthesia/Blood Transfusion Reactions: No Reported Reaction Past Psychological History: No Psychological Hx Reported Smoking Status: Vaper - Past Family History Father Family Medical History: Diabetes Mellitus Course Vital Signs 03/22/24 03/22/24 17:31 21:05 Temperature 97.9 F Pulse Rate 81 94 Respiratory 16 18 Rate Blood Pressure 134/92 131/86 O2 Sat by Pulse 99 99 Oximetry Disposition Clinical Impression: Migraine Disposition: HOME SELF-CARE Condition: Stable Additional Instructions: Please return to the Emergency Department if symptoms worsen or any other concerns. Is patient prescribed a controlled substance at d/c from ED?: No Referrals: Haleigh Tomlin MD [Primary Care Provider] - 1-2 days Time of Disposition: 20:57
[2024-03-22 19:10] LABS: Basophils % (A) 0 %; Eosinophils # (A) 0.1 k/uL (0-0.7); Eosinophils % (A) 1 %; HGB 13.1 gm/dL (11.4-16.0); Lymphocytes # (A) 1.9 k/uL (1.0-4.8); Lymphocytes % (A) 20 %; MCH 29.9 pg (25.0-35.0); MCHC 34.5 g/dL (31.0-37.0); MCV 86.4 fL (80.0-100.0); Mean Platelet Volume 8.3; Monocytes # (A) 0.6 k/uL (0-1.0); Monocytes % (A) 6 %; Neutrophils # (A) 6.8 k/uL (1.3-7.7); Neutrophils % (A) 71 %; Platelet Count 203 k/uL (150-450); RBC 4.39 m/uL (3.80-5.40); RDW 12.4 % (11.5-15.5); WBC 9.6 k/uL (3.8-10.6)
--- NOTE | 2024-03-22 19:20 | CT ---
EXAMINATION TYPE: CT brain wo con CT DLP: 1021.4 mGycm, Automated exposure control for dose reduction was used. DATE OF EXAM: 03/22/2024 7:14 PM COMPARISON: None. CLINICAL INDICATION:Female, 23 years old with history of sudden onset headache, SHELDON, left side facial and arm numbness. TECHNIQUE: Brain: Axial CT images of the brain were obtained with coronal and sagittal reformats created and rev iewed. Contrast used: None. Oral contrast used: None. FINDINGS: Brain: Extra-axial spaces: No abnormal extra-axial fluid collections. Ventricular system: Within normal limits Cerebral parenchyma: No acute intraparenchymal hemorrhage or mass effect. The galindo-white junction is well differentiated. Cerebellum: Unremarkable. Mass effect: No evidence of midline shift. Intracranial vasculature: unremarkable Soft tissues: Normal. Calvarium/osseous structures: No depressed skull fracture. Paranasal sinuses and mastoid air cells: Mild scattered paranasal sinus disease. Visualized orbits: Orbital contents are intact. IMPRESSION: No acute intracranial process.
[2024-03-22 19:41] LABS: ALT 13 U/L (4-34); AST 20 U/L (14-36); African American GFR (CKD) >90 (>60 ml/min/1.73 sqM); Albumin 4.5 g/dL (3.5-5.0); Alkaline Phosphatase 41 U/L (38-126); Anion Gap 8 mmol/L; Blood Urea Nitrogen 20 mg/dL (7-17); Calcium 9.7 mg/dL (8.4-10.2); Carbon Dioxide 24 mmol/L (22-30); Chloride 107 mmol/L (98-107); Glucose 84 mg/dL (74-99); Non-African American GFR(CKD) >90 (>60 ml/min/1.73 sqM); Potassium 3.8 mmol/L (3.5-5.1); Sodium 139 mmol/L (137-145); Total Protein 6.9 g/dL (6.3-8.2)
[2024-03-22] MEDS: ACETAMINOPHEN TAB 325 MG TAB PO STA (20:14)
[2024-03-22 21:06] VITALS: BP 131/86; PULSE 94; RESP 18
== END 2024-03-22 21:06 | disposition home or self-care (01) ==
LOC: EC 17:23
DX: G43.909 Migraine, unspecified, not intractable, without status migrainosus (principal); R00.1 Bradycardia, unspecified; F17.290 Nicotine dependence, other tobacco product, uncomplicated; Z88.8 Allergy status to other drugs, medicaments and biological substances
CPT/HCPCS: 36415; 70450; 80053; 85025; 93005; 99284

== ENCOUNTER → 2024-04-03 | Outpatient (CLI) | payer OTHER | LOC: PNWHC3 07:30 | PROVIDERS: ATTEND Specialist | DX: G89.4 Chronic pain syndrome | CPT/HCPCS: 99211 ==

== ENCOUNTER → 2024-04-03 | Outpatient (CLI) | payer OTHER | END | disposition home or self-care (01) | LOC: LABPRL 07:30 | PROVIDERS: ATTEND Physician Assistant Medical | CPT/HCPCS: 80307 ==

== ENCOUNTER → 2024-06-05 | Outpatient (CLI) | payer OTHER ==
[2024-06-05 13:36] VITALS: BP 117/78; PULSE 81; RESP 19; TEMP 99.1
--- NOTE | 2024-06-05 14:52 | P.PAINPG ---
PQRS Measure Charge Sheet Comment: HISTORY OF PRESENT ILLNESS: A 23 yr old female, previously from Dr Courtney presents today w severe and chronic R hip pain secondary to joint effusion for medication refills. Pt states pain level is provoked at 6 /10 in intensity, constant, localized in the R hip/ R knee and L ankle, sore in character without shooting pain. Pain is provoked by weight bearing activity for periods >30 min. Pain is alleviated by PT x 3 wks in 2020, ice, medications, use of a cane for ambulatory assistance, sitting, repositioning and rest . Note: Pt stated she needs [place] more than her Cannabis use as she only uses it very infrequently, even while a patient of Dr Courtney. Interventional procedures include DENIES Medications include [place] 10/325mg #60, Cannabis which pt states she stopped REVIEW OF ORGAN SYSTEMS: CONSTITUTIONAL: No fevers or chills. No recent weight loss. NEUROLOGICAL: + numbness and tingling along the distal extremities. No seizure disorders or headaches. MUSCULOSKELETAL: + pain PSYCHIATRIC: Denies current depression or suicidal thoughts. Physical Examinations : Constitutional : Cooperative , not in acute distress . Neurologic : Cranial nerve II to XII intact. No focal neurological deficits. Psychiatric : alert & oriented x 3. Matching mood & appropriate affect. Judgment & insight intact. Musculoskeletal : Cervical Spine Motor strength in the deltoid and biceps: Normal right side. Normal Left side Motor strength biceps and the wrist extensors: Normal right side . Normal left side Motor strength in the triceps muscle: Normal right side. Normal left side Deep tendon reflexes: Normal at the biceps. Normal at Brachioradialis. Normal at triceps Vertebral body tenderness to deep palpation over Cervical facet loading test: positive bilaterally Spurling test: positive bilaterally Neck distraction test: positive bilaterally Leo sign: positive bilaterally Lumbar spine +RLE incisional scars, 1+ pitting edema Motor strength lower extremities ,thigh and legs 5/5 Right side , 5/5 Left side Deep tendon reflexes : Normal Knee Jerk. Normal Ankle Jerk Vertebral body tenderness over Figueroa Test positive Lumbar facet Loading Test: positive Right / positive Left Range of motion of the lumbar spine Flexion 30 degrees, extension 10 degrees Straight Leg Raise test: Left/ Right positive at degree Henry test: positive right / positive left. Severe tenderness over the Sacroiliac joint on the Right / Left sides Gaenslen test: positive bilaterally Seated flexion test: positive bilaterally. Sacral spine : Severe tenderness over the Sacroiliac joint: right side / left side Range of motion: Flexion of the lumbar spine <60 degrees Range of motion: Extension of the lumba r spine <20 degrees Gaenslen's Test positive Monico's Test positive Henry test: positive right side / left side Thigh Thrust Test Sacral Thrust Test Imaging: CT noncontrast of the right pelvis from 12/06/21 reviewed Assessment/ Plan : R hip joint effusion, R knee DJD Recommendation of medication management. [place] 10/325mg #60 UDS from 08/05/23 reviewed and consistent. Use, side effects, adverse reactions and safe storage discussed. Renew opiate/ narcotic agreement signed 06/05/24. Risks, benefits of procedure discussed and patient verbalized understanding. Admits to anti- coagulant use or medical history of diabetes. Protocol for discontinuation/ continuation of medications procedure discussed. All questions answered. I have spent greater than 30 minutes on patient care today. Dr Robbins was available by phone for the evaluation of this patient. The time was used to review the medical records including relevant urine studies and Prescription history (MAPs), review of the available imaging, evaluation and examination of the patient, coordination of care with the medical staff and if applicable referring physicians, as well as creation of the medical record PQRS Narrative: Smoking Status Never smoker Hx Alcohol Use (MH) No Home Medications: Ambulatory Orders HYDROcodone/APAP 10-325MG [[place] 10-325] 1 tab PO BID PRN 30 Days #60 tab 06/05/24 HYDROcodone/APAP 10-325MG [[place] 10-325] 1 tab PO BID PRN 30 Days #60 tab 06/05/24 Controlled Substance Measures - Controlled Substance Measures Is patient prescribed a controlled substance at discharge?: Yes When asked, does pt state using other controlled substances?: No If prescribed controlled substance>3 days was MAPS reviewed?: Yes If Rx opioid, was Start Talking consent form obtained?: Yes Was information provided regarding opioid addiction?: Yes
== END ==
LOC: PNWHC3 13:11
PROVIDERS: ATTEND Specialist
DX: G89.4 Chronic pain syndrome
CPT/HCPCS: 99211

== ENCOUNTER → 2024-08-08 | Outpatient (CLI) | payer OTHER ==
[2024-08-08 11:54] VITALS: BP 121/80; PULSE 66; RESP 16; TEMP 97.9
--- NOTE | 2024-08-08 14:52 | P.PAINPG ---
PQRS Measure Charge Sheet Comment: HISTORY OF PRESENT ILLNESS: A 23 yr old female presents today w severe and chronic R hip pain secondary to joint effusion for medication refills. Pt states pain level is provoked at 6 /10 in intensity, constant, localized in the R hip/ R knee and L ankle, sore in character without shooting pain. Pain is provoked by weight bearing activity for periods >30 min. Pain is alleviated by PT x 3 wks in 2020, ice, medications, use of a cane for ambulatory assistance, sitting, repositioning and rest . Note: Pt stated she needs [place] more than her Cannabis use as she only uses it very infrequently, even while a patient of Dr Courtney. Interventional procedures include DENIES Medications include [place] 10/325mg #60, Cannabis which pt states she stopped REVIEW OF ORGAN SYSTEMS: CONSTITUTIONAL: No fevers or chills. No recent weight loss. NEUROLOGICAL: + numbness and tingling along the distal extremities. No seizure disorders or headaches. MUSCULOSKELETAL: + pain PSYCHIATRIC: Denies current depression or suicidal though ts. Physical Examinations : Constitutional : Cooperative , not in acute distress . Neurologic : Cranial nerve II to XII intact. No focal neurological deficits. Psychiatric : alert & oriented x 3. Matching mood & appropriate affect. Judgment & insight intact. Musculoskeletal : Cervical Spine Motor strength in the deltoid and biceps: Normal right side. Normal Left side Motor strength biceps and the wrist extensors: Normal right side . Normal left side Motor strength in the triceps muscle: Normal right side. Normal left side Deep tendon reflexes: Normal at the biceps. Normal at Brachioradialis. Normal at triceps Vertebral body tenderness to deep palpation over Cervical facet loading test: positive bilaterally Spurling test: positive bilaterally Neck distraction test: positive bilaterally Leo sign: positive bilaterally Lumbar spine +RLE incisional scars, 1+ pitting edema Motor strength lower extremities ,thigh and legs 5/5 Right side , 5/5 Left side Deep tendon reflexes : Normal Knee Jerk. Normal Ankle Jerk Vertebral body tenderness over Figueroa Test positive Lumbar facet Loading Test: positive Right / positive Left Range of motion of the lumbar spine Flexion 30 degrees, extension 10 degrees Straight Leg Raise test: Left/ Right positive at degree Henry test: positive right / positive left. Severe tenderness over the Sacroiliac joint on the Right / Left sides Gaenslen test: positive bilaterally Seated flexion test: positive bilaterally. Sacral spine : Severe tenderness over the Sacroiliac joint: right side / left side Range of motion: Flexion of the lumbar spine <60 degrees Range of motion: Extension of the lumbar spine <20 degrees Gaenslen's Test positive Monico's Test positive Henry test: positive right side / left side Thigh Thrust Test Sacral Thrust Test Imaging: CT noncontrast of the right pelvis from 12/06/21 reviewed Assessment/ Plan : R hip joint effusion, R knee DJD Recommendation of medication management and PT integrated w therapeutic massage x 6 wks [id number]. Add Flexeril 10mg #30, [place] 10/325mg #60 w 1 RF. UDS from 04/05/24 reviewed and consistent. Use, side effects, adverse reactions and safe storage discussed. Opiate/ narcotic agreement signed 06/05/24. All questions answered. I have spent greater than 30 minutes on patient care today. Dr Robbins was available by phone for the evaluation of this patient. The time was used to review the medical records including relevant urine studies and Prescription history (MAPs), review of the available imaging, evaluation and examination of the patient, coordination of care with the medical staff and if applicable referring physicians, as well as creation of the medical record PQRS Narrative: Smoking Status Never smoker Narcotic Agreement Date Signed 06/05/24 Hx Alcohol Use (MH) No Home Medications: Ambulatory Orders HYDROcodone/APAP 10-325MG [[place] 10-325] 1 tab PO BID PRN 30 Days #60 tab 06/05/24 HYDROcodone/APAP 10-325MG [[place] 10-325] 1 tab PO BID PRN 30 Days #60 tab 06/05/24 Controlled Substance Measures - Controlled Substance Measures Is patient prescribed a controlled substance at discharge?: Yes When asked, does pt state using other controlled substances?: No If prescribed controlled substance>3 days was MAPS reviewed?: Yes
== END ==
LOC: PNWHC3 10:35
PROVIDERS: ATTEND Specialist
DX: M17.11 Unilateral primary osteoarthritis, right knee (principal); M25.451 Effusion, right hip; Z88.8 Allergy status to other drugs, medicaments and biological substances
CPT/HCPCS: 99211